=== PATIENT | female | born 1995 | race African-American/Black ===

== ENCOUNTER 2018-09-06 10:35 | Emergency (ER) | payer SELFPAY ==
--- OUTSIDE RECORDS SUMMARY | 2018-09-06 10:37 | XMS REPORT ---
:1995 [facility] Address [address]e [address] [place] [address] Care Team Providers Name Role Phone Unavailable Unavailable Unavailable Problems This patient has no known problems. Allergies, Adverse Reactions, Alerts This patient has no known allergies or adverse reactions. Medications This patient has no known medications.
--- NOTE | 2018-09-06 11:53 | ER ---
Nurse's Notes [facility] Name: Shahrzad Esqueda Age: 23 yrs Sex: Female : 1995 Arrival Date: 09/06/2018 Time: 10:36 Bed 19 Private MD: Diagnosis: Acute sinusitis Presentation: 09/06 10:59 Presenting complaint: Patient states: sore throat, feels like I can't breath, fever, iw alexandra ear pain, runny nose X 3 days. Transition of care: patient was not received from another setting of care. Onset of symptoms was September 03, 2018. Risk Assessment: Do you want to hurt yourself or someone else? Patient reports no desire to harm self or others. Initial Sepsis Screen: Does the patient meet any 2 criteria? No. Patient's initial sepsis screen is negative. Does the patient have a suspected source of infection? No. Patient's initial sepsis screen is negative. Care prior to arrival: None. 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 - Social history:: Smoking status: Patient/guardian denies using tobacco. - Ebola Screening: : Patient negative for fever greater than or equal to 101.5 degrees Fahrenheit, and additional compatible Ebola Virus Disease symptoms Patient denies exposure to infectious person Patient denies travel to an Ebola-affected area in the 21 days before illness onset No symptoms or risks identified at this time. Screenin:15 Abuse screen: Denies threats or abuse. Nutritional screening: No deficits noted. em Tuberculosis screening: No symptoms or risk factors identified. Fall Risk None identified. Assessment: 11:15 General: Appears in no apparent distress. comfortable, Behavior is calm, cooperative, em Reports fever for 12-24 hours. Pain: Complains of pain in throat Pain currently is 8 out of 10 on a pain scale. Pain began 2-3 days ago. Neuro: Level of Consciousness is awake, alert, obeys commands, Oriented to person, place, time, situation. Cardiovascular: Heart tones S1 S2 present Capillary refill < 3 seconds. Respiratory: Reports cough that is Airway is patent Respiratory effort is even, unlabored, Breath sounds are clear bilaterally. GI: Patient currently denies nausea, vomiting. EENT: Oral mucosa is moist. Throat is clear is pink Reports nasal congestion since for 3 days. Derm: Skin is intact, is healthy with good turgor, Skin is pink, warm \T\ dry. Musculoskeletal: Capillary refill < 3 seconds, Range of motion: intact in all extremities. 12:22 Reassessment: Patient appears in no apparent distress at this time. Patient and/or em family updated on plan of care and expected duration. Pain level reassessed. Patient is alert, oriented x 3, equal unlabored respirations, skin warm/dry/pink. Vital Signs: 11:02 BP 123 / 89; Pulse 92; Resp 16 S; Temp 98.4(TE); Pulse Ox 100% on R/A; Weight 88.45 kg; iw Height 5 ft. 6 in. (167.64 cm); Pain 8/10; 11:02 Body Mass Index 31.47 (88.45 kg, 167.64 cm) iw ED Course: 10:36 Patient arrived in ED. as 10:40 Mariama Siddiqi FNP-C is [facility]. kb 10:40 Ryne Merrill MD is Attending Physician. kb 11:01 Triage completed. iw 11:01 Julius Douglas LVN is Primary Nurse. em 11:03 Arm band placed on. iw 11:15 Patient has correct armband on for positive identification. Bed in low position. Call em light in reach. Pulse ox on. NIBP on. 12:22 No provider procedures requiring assistance completed. Patient did not have IV access em during this emergency room visit. Administered Medications: 12:04 Drug: SOLU-Medrol 125 mg Route: IM; Site: right gluteus; em 12:22 Follow up: Response: No adverse reaction em Outcome: 11:52 Discharge ordered by . kb 12:22 Discharged to home ambulatory. em 12:22 Condition: good 12:22 Discharge instructions given to patient, Instructed on discharge instructions, follow up and referral plans. Demonstrated understanding of instructions, follow-up care. 12:22 Patient left the ED. em Signatures: Mariama Siddiqi FNP-C FNP-Ckb Julius Douglas, ENVELOPE STAMPING MACHINE OPERATOR ENVELOPE STAMPING MACHINE OPERATOR Nina Dior as Laxmi Knapp, RN RN iw
--- NOTE | 2018-09-06 11:53 | EDPHYS ---
Physician Documentation [facility] Name: Shahrzad Esqueda Age: 23 yrs Sex: Female : 1995 Arrival Date: 09/06/2018 Time: 10:36 Bed 19 Private MD: ED Physician Ryne Merrill HPI: 09/06 11:48 This 23 yrs old Black Female presents to ER via Ambulatory with complaints of Sore kb Throat, Fever, Ear Pain. 11:48 The patient presents with sore throat. The patient describes throat pain as constant. kb Onset: The symptoms/episode began/occurred 3 day(s) ago. Severity of symptoms: At their worst the symptoms were moderate, in the emergency department the symptoms are unchanged. Modifying factors: The symptoms are alleviated by nothing, the symptoms are aggravated by swallowing, Patient's oral intake status: good Denies contact with similarly ill indivduals. Associated signs and symptoms: Pertinent positives: earache, flu-like symptoms, malaise, rhinorrhea, Sore throat. The patient has not experienced similar symptoms in the past. The patient has not recently seen a physician. 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 - Social history:: Smoking status: Patient/guardian denies using tobacco. - Ebola Screening: : Patient negative for fever greater than or equal to 101.5 degrees Fahrenheit, and additional compatible Ebola Virus Disease symptoms Patient denies exposure to infectious person Patient denies travel to an Ebola-affected area in the 21 days before illness onset No symptoms or risks identified at this time. ROS: 11:48 Cardiovascular: Negative for chest pain, palpitations, and edema, Respiratory: Negative kb for shortness of breath, cough, wheezing, and pleuritic chest pain, Abdomen/GI: Negative for abdominal pain, nausea, vomiting, diarrhea, and constipation, MS/Extremity: Negative for injury and deformity, Skin: Negative for injury, rash, and discoloration, Neuro: Negative for headache, weakness, numbness, tingling, and seizure. 11:48 Constitutional: Positive for malaise, Negative for body aches, chills, fatigue, fever, poor PO intake, weight loss. 11:48 ENT: Positive for ear pain, rhinorrhea, sinus congestion, sinus pain. Exam: 11:50 Constitutional: This is a well developed, well nourished patient who is awake, alert, kb and in no acute distress. Head/Face: Normocephalic, atraumatic. ENT: Nares patent. No nasal discharge, no septal abnormalities noted. Tympanic membranes are normal and external auditory canals are clear. Oropharynx with no redness, swelling, or masses, exudates, or evidence of obstruction, uvula midline. Mucous membranes moist. Neck: Trachea midline, no thyromegaly or masses palpated, and no cervical lymphadenopathy. Supple, full range of motion without nuchal rigidity, or vertebral point tenderness. No Meningismus. Chest/axilla: Normal chest wall appearance and motion. Nontender with no deformity. No lesions are appreciated. Cardiovascular: Regular rate and rhythm with a normal S1 and S2. No gallops, murmurs, or rubs. Normal PMI, no JVD. No pulse deficits. Respiratory: Lungs have equal breath sounds bilaterally, clear to auscultation and percussion. No rales, rhonchi or wheezes noted. No increased work of breathing, no retractions or nasal flaring. Abdomen/GI: Soft, non-tender, with normal bowel sounds. No distension or tympany. No guarding or rebound. No evidence of tenderness throughout. Skin: Warm, dry with normal turgor. Normal color with no rashes, no lesions, and no evidence of cellulitis. MS/ Extremity: Pulses equal, no cyanosis. Neurovascular intact. Full, normal range of motion. Neuro: Awake and alert, GCS 15, oriented to person, place, time, and situation. Cranial nerves II-XII grossly intact. Motor strength 5/5 in all extremities. Sensory grossly intact. Cerebellar exam normal. Normal gait. Vital Signs: 11:02 BP 123 / 89; Pulse 92; Resp 16 S; Temp 98.4(TE); Pulse Ox 100% on R/A; Weight 88.45 kg; iw Height 5 ft. 6 in. (167.64 cm); Pain 8/10; 11:02 Body Mass Index 31.47 (88.45 kg, 167.64 cm) iw MDM: 10:58 Patient medically screened. kb 11:50 Data reviewed: vital signs, nurses notes. Data interpreted: Pulse oximetry: on room air kb is 100 %. Interpretation: normal. Counseling: I had a detailed discussion with the patient and/or guardian regarding: the historical points, exam findings, and any diagnostic results supporting the discharge/admit diagnosis, lab results, the need for outpatient follow up, a family practitioner, to return to the emergency department if symptoms worsen or persist or if there are any questions or concerns that arise at home. 09/06 11:01 Order name: Flu; Complete Time: 11:48 kb 09/06 11:01 Order name: Strep; Complete Time: 11:38 kb 09/06 11:40 Order name: Throat Culture EDMS Administered Medications: 12:04 Drug: SOLU-Medrol 125 mg Route: IM; Site: right gluteus; em 12:22 Follow up: Response: No adverse reaction em Disposition: 09/06/18 11:52 Discharged to Home. Impression: Acute sinusitis. - Condition is Stable. - Discharge Instructions: Sinusitis, Adult, [id number]. - Medication Reconciliation Form, Thank You Letter, Antibiotic Education, Prescription Opioid Use form. - Follow up: Emergency Department; When: As needed; Reason: Worsening of condition. Follow up: Private Physician; When: 2 - 3 days; Reason: Recheck today's complaints, Continuance of care, Re-evaluation by your physician. - Notes: Use Flonase as directed Take an antihistamine with decongestant (zyrtec d, claritin d, or cyrus d) daily Signatures: Dispatcher [employer] EDWI Mariama Siddiqi, RUFUS-C TRAIL CONSTRUCTION WORKER-Julius Camp, SEARCH MARKETING COORDINATOR SEARCH MARKETING COORDINATOR em Laxmi Knapp, LLOYD RN iw Corrections: (The following items were deleted from the chart) 12:22 11:52 09/06/2018 11:52 Discharged to Home. Impression: Acute sinusitis. Condition is em Stable. Discharge Instructions: Sinusitis, Adult, [id number]. Forms are Medication Reconciliation Form, Thank You Letter, Antibiotic Education, Prescription Opioid Use. Follow up: Emergency Department; When: As needed; Reason: Worsening of condition. Follow up: Private Physician; When: 2 - 3 days; Reason: Recheck today's complaints, Continuance of care, Re-evaluation by your physician. kb
[2018-09-06] MEDS ORDERED: METHYLPREDNISOLONE 125 MG INJ ONE (12:11)
== END 2018-09-06 12:22 | disposition home or self-care (01) ==
LOC: ER 10:35
DX: J01.90 Acute sinusitis, unspecified (principal)
CPT/HCPCS: 87070; 87081; 87804; J2930

== ENCOUNTER 2019-05-07 02:44 | Emergency (ER) | payer SELFPAY ==
--- OUTSIDE RECORDS SUMMARY | 2019-05-07 02:46 | XMS REPORT | Summary of Care ---
:1995 Author Organization [facility] Address [address] [place] [address] Care Team Providers Name Role Phone [facility] Provider Encounter Details Date Type Department Care Team Description 12/14/2018 Orders Only [facility] Doctor Unassigned, No [address] [facility] [place] [address] [address] [place] [address] Allergies No Known Allergiesdocumented as of this encounter (statuses as of 12/14/2018) Medications Medication Sig Dispensed Refills Start Date End Date Status traMADOL 50 mg tablet Take 1 tablet by 20 tablet 0 04/16/2018 Active mouth every 6 (six) hours as needed for Pain (scale 1-3) or Pain (scale 4-6). ibuprofen 600 mg Take 1 tablet by 30 tablet 0 04/16/2018 Active tablet mouth every 6 (six) hours as needed for Pain (scale 1-3) or Pain (scale 4-6). acyclovir 400 mg Take 1 tablet by 60 tablet 3 07/14/2018 Active tabletIndications: mouth 2 (two) Herpes, vulvar times daily. levonorgestrel-ethinyl Take 1 tablet by 1 Package 2 08/13/2018 Active estradiol (SRONYX) mouth daily. 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 documented as of this encounter (statuses as of 12/14/2018) Resolved Problems Problem Noted Date Resolved Date Cellulitis of vulva of multiple sites 12/04/2015 12/20/2016 Maternal varicella, non-immune 10/24/2015 12/20/2016 High-risk , first trimester [O09.91] 10/23/2015 12/20/2016 History of chlamydia 10/23/2015 12/20/2016 Nausea and vomiting during prior to 22 weeks 10/23/2015 12/20/2016 gestation Headache in , antepartum, first trimester 10/23/2015 12/20/2016 Herpes, vulvar 10/23/2015 12/20/2016 Anemia 02/19/2013 10/23/2015 Overview: Mild- hgb- 11.3 ICD10 Diagnosis 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 Encounter for routine gynecological examination 02/18/2013 10/23/2015 Overview: ICD10 Diagnosis 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 General counseling and advice for contraceptive management 02/18/20132015 Overview: ICD10 Diagnosis 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 Trichomonal vulvovaginitis 02/18/2013 10/23/2015 documented as of this encounter (statuses as of 12/14/2018) Immunizations Name Administration Dates Next Due HPV9 10/28/2017, 03/21/2017, 12/20/2016 Td 12/20/2011 documented as of this encounter Social History Tobacco Use Types Packs/Day Years Used Date Never Smoker Smokeless Tobacco: Never Used Alcohol Use Drinks/Week oz/Week Comments No 0 Standard drinks or equivalent 0.0 Sex Assigned at Date Recorded Not on file Job Start Date Occupation Industry Not on file Not on file Not on file Travel History Travel Start Travel End No recent travel history available. documented as of this encounter Last Filed Vital Signs Not on filedocumented in this encounter Plan of Treatment Health Maintenance Due Date Last Done Comments MENINGOCOCCAL B VACCINES (1 08/04/2007 of 2 - Risk Bexsero 2-dose series) VARICELLA VACCINES (1 of 2 - 2010 13+ 2-dose series) DTaP,Tdap,and Td Vaccines (2 2016 12/20/2011 - Tdap) PAP SMEAR 2018 INFLUENZA VACCINE 01/10/2019 CHLAMYDIA SCREENING 08/14/2019 08/13/2018, 12/30/2017, 05/20/2017, Additional history exists HPV VACCINES Completed 10/28/2017, 03/21/2017, 12/20/2016 MENINGOCOCCAL VACCINE Aged Out No longer eligible based on patient's age to complete this topic PNEUMOCOCCAL 0-64 YEARS Aged Out No longer eligible COMBINED SERIES based on patient's age to complete this topic documented as of this encounter Procedures Procedure Name Priority Date/Time Associated Diagnosis Comments [facility] PATIENT FINANCIAL Routine 12/14/2018 4:34 PM POLICY CDT NO SHOW OR MISSED Routine 12/14/2018 4:33 PM APPOINTMENT POLICY CDT ACKNOWLEDGEMENT documented in this encounter Results Not on filedocumented in this encounter Insurance Payer Benefit Plan Subscriber ID Effective Phone Address Type / Group Dates [facility] x[id number] [phone] Medicaid [place]OM[place] [id number] [place] [address] documented as of this encounter Advance Directives Name Relationship Healthcare Agent Relationship Communication Marilu Tsang Mother Primary healthcare agent
--- OUTSIDE RECORDS SUMMARY | 2019-05-07 02:46 | XMS REPORT ---
:1995 [facility] Address [address] [place] [address] Care Team Providers Name Role Phone Unavailable Unavailable Unavailable Problems This patient has no known problems. Allergies, Adverse Reactions, Alerts This patient has no known allergies or adverse reactions. Medications This patient has no known medications.
--- OUTSIDE RECORDS SUMMARY | 2019-05-07 02:47 | XMS REPORT | Summary of Care ---
:1995 Author Organization [facility] Address [address] [place] [id number] Care Team Providers Name Role Phone Jeny Torres [facility] Primary Care Provider Reason for Visit Reason Comments Well Woman Exam Encounter Details Date Type Department Care Team Description 12/14/2018 Office Visit [facility]- Jeny Torres Well woman exam (Primary Dx); Behzad Aceves [facility] control counseling; [address] Screen for STD (sexually transmitted disease); [place], [place] [employer] Obesity (BMI 30-39.9) [id number] [place], [place] [id number] Allergies No Known Allergiesdocumented as of this [...] 0.1-20 mg-mcg per tabletIndications: Family planning counseling levonorgestrel-ethinyl Take 1 tablet by 1 Package 2 12/14/2018 Active estradiol (SRONYX) mouth daily. 0.1-20 mg-mcg per tabletIndications: control counseling documented as of this encounter (statuses as of 12/14/2018) Active Problems Problem Noted Date Obesity (BMI 30-39.9) 12/14/2018 Vaginal laceration 06/16/2017 Well woman exam 12/20/2016 Encounter for other general counseling or advice on contraception 12/20/2016 Over weight 12/20/2016 Herpes genitalis in women 12/04/2015 Asthma 02/18/2013 Overview: ICD10 Diagnosis Term Cephalometric Analyst Utility documented as of this encounter (statuses [...] Overview: Mild- hgb- 11.3 ICD10 Diagnosis Term Cephalometric Analyst Utility Encounter for routine gynecological examination 02/18/2013 10/23/2015 Overview: ICD10 Diagnosis Term Cephalometric Analyst Utility General counseling and advice for contraceptive management 02/18/20132015 Overview: ICD10 Diagnosis Term Cephalometric Analyst Utility Trichomonal vulvovaginitis 02/18/2013 10/23/2015 documented as of this encounter (statuses as of 12/14/2018) Immunizations Name Administration Dates Next Due HPV9 10/28/2017, 03/21/2017, 12/20/2016 Td 12/20/2011 documented as of this encounter Social History Tobacco Use Types Packs/Day Years Used Date Never Smoker Smokeless Tobacco: Never Used Alcohol Use Drinks/Week oz/Week Comments Yes 0 Standard drinks or equivalent 0.0 Sociallu Alcohol Habits Answer Date Recorded How often do you have a drink containing alcohol? Not asked How many drinks containing alcohol do you have on a typical 1 or 2 12/14/2018 day when you are drinking? How often do you have six or more drinks on one occasion? Not asked Sex Assigned at Date Recorded Not on file Job Start Date Occupation Industry Not on file Not on file Not on file Travel History Travel Start Travel End No recent travel history available. documented as of this encounter Last Filed Vital Signs Vital Sign Reading Time Taken Comments Blood Pressure 135/88 12/14/2018 4:58 PM CDT Pulse 94 12/14/2018 4:58 PM CDT Temperature 37.1 C (98.8 F) 12/14/2018 4:58 PM CDT Respiratory Rate 16 12/14/2018 4:58 PM CDT Oxygen Saturation - - Inhaled Oxygen Concentration - - Weight 90.9 kg (200 lb 8 oz) 12/14/2018 4:58 PM CDT Height 167.6 cm (5' 6") 12/14/2018 4:58 PM CDT Body Mass Index 32.36 12/14/2018 4:58 PM CDT documented in this encounter Patient Instructions Patient InstructionsIncDickson berger RN - 12/14/2018 4:30 PM CDT Understanding STDs When it comes to sex, nothing is risk-free. Any sexual contact with the penis, vagina, anus, or mouth can spread a sexually transmitted disease (STD). The only sure way to prevent STDs is abstinence (not having sex). But there are ways to make sex safer. Use a latex condom each time you have sex. And choose your partner wisely. Use condoms for safer sex If you have sex, latex condoms provide the best protection against STDs. Latex condoms stop the exchange of body fluids that carry certain STDs. They also limit contact with affected skin. Be aware though, a condom doesnt cover all skin. So, affected skin that is not covered can still transfer disease. But you re safer with a condom than without one. Use a condom even if you use other control. While control methods like the pill or IUD help prevent , they do not protect against STDs. Choose the right condom Condoms made of latex prevent disease best. If youre allergic to latex, use polyurethane condoms instead. Male condoms fit over the penis. Female condoms line the vagina. Before buying a condom, read the label to be sure it prevents disease. Some novelty condoms dont. The right lubricant helps Buy lubricated condoms or use lubricant. This provides greater comfort and reduces the risk of condom breakage. Use only water-based lubricants. Dont use oil, lotion, or petroleum jelly. They can weaken the condom, causing breakage. Also, you may want to choose lubricants without nonoxynol-9. Its now known that this spermicide does not prevent disease and may cause irritation. Use condoms correctly For condoms to work, they must be used the right way. Keep these tips in mind: Use a new latex condom each time you have sex. Slip the condom on the penis before any contact ismade. When ready to withdraw, hold the rim of the condom as the penis pulls out. This prevents the condom from slipping off. Check the expiration date before using a condom. Dont store condoms in places that can get hot, such as a car or a wallet that is carried in a back pocket. Get to know your partner Safer sex is a process. It involves getting to know your partner and making informed choices. Ask each other how many partners you have had in the past, and how many you have now. Find out if either ofyou has an STD. If you decide to have sex, use a condom each time. Dont stop using condoms unlessyoure sure neither of you has other partners and youve both been tested to confirm you donthave STDs. Then stay free of disease by having sex only with each other (monogamy). Keep your cool Dont let alcohol or drugs cloud your judgment. They could lead you to have sex with someone you wouldnt have chosen if you were sober. Or, you might forget to use a condom. If you do plan to havesex, keep a latex condom with you. Dont wait until youre in the heat of passion to try to findone. Consider abstinence The only way to be sure you wont get an STD is to abstain from sex. Abstinence is a choice that many people make at some point in their lives. Maybe you want to wait until you are sure youre ready before you have sex. Maybe youd like a break from the responsibilities of sex for a while. Or maybe you just want to know your partner better before taking the next step. Abstinence is a choice youcan make now to protect your future. Date Last Reviewed: 04/11/201619990535-7924 [employer]. [address] [place] [address]. All rights reserved. This information is not intended as a substitute for professional medical care. Always follow your healthcare professional's instructions. Prevention Guidelines,Women Ages 18 to 39 Screening tests and vaccines are an important part of managing your health. A screening test is doneto find possible disorders or diseases in people who don' t have any symptoms. The goal is to find a disease early so lifestyle changes can be made and you can be watched more closely to reduce the riskof disease, or to detect it early enough to treat it most effectively. Screening tests are not considered diagnostic, but are used to determine if more testing is needed. Health counseling is essential, too. Below are guidelines for these, for women ages 18 to 39. Talk with your healthcare provider tomake sure youre up-to- date on what you need. Screening Who needs it How often Alcohol misuse All women in this age group At routine exams Blood pressure All women in this age group Yearly checkup if your blood pressure is normal Normal blood pressure is less than 120/80 mm Hg If your blood pressure reading is higher than normal, follow the advice of your healthcare provider Breast cancer All women in this age group should talk with their healthcare providers about the needfor clinical breast exams (CBE)1 Clinical breast exam every 3 years1 Cervical cancer Women ages 21 and older Women between ages 21 and 29 should have a Pap test every 3 years; women between ages 30 and 65 are advised to have a Pap test plus an HPV test every 5 years Chlamydia Sexually active women ages 25 and younger, and women at increased risk for infection (suchas having multiple sex partners) Every year if you're at risk or have symptoms Depression All women in this age group At routine exams Type 2 diabetes, prediabetes All women with no symptoms who are overweight or obese and have 1 or more other risk factors for diabetes At least every 3 years. Also, testing for diabetes during after the 24th week. Type 2 diabetes, prediabetes All women diagnosed with gestational diabetes Lifelong testing every 3 years Type 2 diabetes All women with prediabetes Every year Gonorrhea Sexually active women at increased risk for infection At routine exams Hepatitis C Anyone at increased risk At routine exams HIV All women should be tested at least once for HIV between the ages of 13 and 64 At routine exams.Those with risk factors for HIV should be tested at least annually. Obesity All women in this age group At routine exams Syphilis Women at increased risk for infection should talk with their healthcare provider At routineexams Tuberculosis Women at increased risk for infection should talk with their healthcare provider Ask your healthcare provider Vision All women in this age group At least 1 complete exam in your 20s, and 2 in your 30s Vaccine2 Who needs it How often Chickenpox (varicella) All women in this age group who have no record of this infection or vaccine 2doses; the second dose should be given 4 to 8 weeks after the first dose Hepatitis A Women at increased risk for infection should talk with their healthcare provider 2 dosesgiven at least 6 months apart Hepatitis B Women at increased risk for infection should talk with their healthcare provider 3 dosesover 6 months; second dose should be given 1 month after the first dose; the third dose should be given at least 2 months after the second dose and at least 4 months after the first dose Haemophilus influenzaeType B (HIB) Women at increased risk for infection should talk with their healthcare provider 1 to 3 doses Human papillomavirus (HPV) All women in this age group up to age 26 3 doses; the second dose should be given 1 to 2 months after the first dose and the third dose given 6 months after the first dose Influenza (flu) All women in this age group Once a year Measles, mumps, rubella (MMR) All women in this age group who have no record of these infections or vaccines 1 or 2 doses Meningococcal Women at increased risk for infection should talk with their healthcare provider 1 or more doses Pneumococcal conjugate vaccine (PCV13)and pneumococcal polysaccharide vaccine(PPSV23) Women at increased risk for infection should talk with their healthcare provider PCV13: 1 dose ages 19 to 65 (protects against 13 types of pneumococcal bacteria) PPSV23: 1 to2 doses through age 64, or 1 dose at 65 or older (protects against 23 types of pneumococcal bacteria) Tetanus/diphtheria/pertussis (Td/Tdap) booster All women in this age group Td every 10 years, or a one-time dose of Tdap instead of a Td booster after age 18 , then Td every 10 years Counseling Who needs it How often BRCA gene mutation testing for breast and ovarian cancer susceptibility Women with increased risk for having gene mutation When your risk is known Breast cancer and chemoprevention Women at high risk for breast cancer When your risk is known Diet and exercise Women who are overweight or obese When diagnosed, and then at routine exams Domestic violence Women at the age in which they are able to have children At routine exams Sexually transmitted infection prevention Women who are sexually active At routine exams Skin cancer Prevention of skin cancer in fair-skinned adults At routine exams Use of tobacco and the health effects it can cause All women in this age group Every visit 1 According to the ACS, women ages 20 to 39 years should have a clinical breast exam (CBE) as part of their routine health exam every 3 years. Breast self- exams are an option for women starting in their 20s.But the USPSTF does not recommend CBE. Date Last Reviewed: 02/09/201719993437-5511 [employer]. [address] [place] [address]. All rights reserved. This information is not intended as a substitute for professional medical care. Always follow your healthcare professional's instructions. Understanding HIV and AIDS If you know how HIV (human immunodeficiency virus) can get into your body and what happens once its there, youll be better prepared to protect yourself or others against this virus. A person withHIV can look and feel perfectly healthy. But that person can give HIV to others as soon as he or sheis infected with the virus. Note: Having unsafe or unprotected sex or sharing needles put you at risk for HIV. Talk with your healthcare provider about ways to protect yourself or a loved one from getting HIV. How HIV enters the body HIV is carried in semen, vaginal fluid, blood, and breast milk. During sex, HIV can enter the body through the fragile tissue that lines the vagina, penis, anus,and mouth. During drug use, tattooing, or body piercing, the virus can enter the bloodstream through a shared needle. A mother who has HIV can infect her child during childbirth and through . How HIV infection progresses After HIV enters the body, it attacks the immune system in stages. A person with HIV can infect others once the virus enters the bloodstream. HIV with no symptoms. A person with HIV may have no symptoms for years. A positive blood test for HIV antibodies 6 weeks to 6 months after HIV enters the body may be the only sign of infection. HIV with symptoms.Some people develop an illness similar to mononucleosis (or "mono") 2 to 4 weeksafter the virus enters the body. Symptoms may include swollen lymph glands, chills, fever, night sweats, weakness, weight loss, skin rashes, mouth ulcers, or sore throat. Symptoms may be mild at first and then slowly go away. In a very few individuals, symptoms may get progressively worse and last forlonger and longer periods. AIDS. AIDS is the last stage of HIV infection. Diseases and cancers begin to overcome the body. It is these diseases, not the virus itself, that cause . HIV may also attack the brain and nervous system, causing seizures and loss of memory and body movement. Date Last Reviewed: 03/12/201619992687-0451 [employer] [place] [address]. All rights reserved. This information is not intended as a substitute for professional medical care. Always follow your healthcare professional's instructions. Understanding STDs When it comes to sex, nothing is risk-free. Any sexual contact with the penis, vagina, anus, or mouth can spread a sexually transmitted disease (STD). The only sure way to prevent STDs is abstinence (not having sex). But there are ways to make sex safer. Use a latex condom each time you have sex. And choose your partner wisely. Use condoms for safer sex If you have sex, latex condoms provide the best protection against STDs. Latex condoms stop the exchange of body fluids that carry certain STDs. They also limit contact with affected skin. Be aware though, a condom doesnt cover all skin. So, affected skin that is not covered can still transfer disease. But you re safer with a condom than without one. Use a condom even if you use other control. While control methods like the pill or IUD help prevent , they do not protect against STDs. Choose the right condom Condoms made of latex prevent disease best. If youre allergic to latex, use polyurethane condoms instead. Male condoms fit over the penis. Female condoms line the vagina. Before buying a condom, read the label to be sure it prevents disease. Some novelty condoms dont. The right lubricant helps Buy lubricated condoms or use lubricant. This provides greater comfort and reduces the risk of condom breakage. Use only water-based lubricants. Dont use oil, lotion, or petroleum jelly. They can weaken the condom, causing breakage. Also, you may want to choose lubricants without nonoxynol-9. Its now known that this spermicide does not prevent disease and may cause irritation. Use condoms correctly For condoms to work, they must be used the right way. Keep these tips in mind: Use a new latex condom each time you have sex. Slip the condom on the penis before any contact ismade. When ready to withdraw, hold the rim of the condom as the penis pulls out. This prevents the condom from slipping off. Check the expiration date before using a condom. Dont store condoms in places that can get hot, such as a car or a wallet that is carried in a back pocket. Get to know your partner Safer sex is a process. It involves getting to know your partner and making informed choices. Ask each other how many partners you have had in the past, and how many you have now. Find out if either ofyou has an STD. If you decide to have sex, use a condom each time. Dont stop using condoms unlessyoure sure neither of you has other partners and youve both been tested to confirm you donthave STDs. Then stay free of disease by having sex only with each other (monogamy). Keep your cool Dont let alcohol or drugs cloud your judgment. They could lead you to have sex with someone you wouldnt have chosen if you were sober. Or, you might forget to use a condom. If you do plan to havesex, keep a latex condom with you. Dont wait until youre in the heat of passion to try to findone. Consider abstinence The only way to be sure you wont get an STD is to abstain from sex. Abstinence is a choice that many people make at some point in their lives. Maybe you want to wait until you are sure youre ready before you have sex. Maybe youd like a break from the responsibilities of sex for a while. Or maybe you just want to know your partner better before taking the next step. Abstinence is a choice youcan make now to protect your future. Date Last Reviewed: 04/11/201619990658-4944 [employer]. [address] [place] [address], [place] [address]. All rights reserved. This information is not intended as a substitute for professional medical care. Always follow your healthcare professional's instructions. Clinical Breast Exam Many health organizations recommend a yearly clinical breast exam. This exam may be done by a surgical rn, family healthcare provider, nurse practitioner, nurse digital computer systems analyst, or specially trained nurse. Yearly breast exams help tomake surethat breast conditions are found early. Your healthcare providers role A healthcare professional knows the tests and follow-up care needed if a problem is found. Your clinical exam is also a great time to ask questions about breast self-exams. You can find out if yourechecking your breasts in the best way. Or you may want to ask how , breast implants, or breast reduction surgery affect the way you should check your breasts. Diagnostic tests If a clinical exam reveals a breast change, you may have other tests to find out more. These tests may include: Mammography. A low-dose X-ray of your breast tissue. Ultrasound. An imaging test that uses sound waves to create images of your breast. Biopsy. A small amount of breast tissue is removed by needle or by a cut ( incision). The tissue is then checked under a microscope. Guidelines for having clinical breast exams The [place] [employer] recommends that starting at age 29, you should have a clinical breast exam every 1 to 3 years. After age 40, have a clinical breast exam each year. If youre at higher risk for breast cancer, you may need exams more often. Risk factors for breast cancer may include: Being over 50 or postmenopausal Having a family history of breast cancer Having the BRCA1 or BRCA2 gene mutation or certain other gene mutations Having more menstrual periods due to starting menstruation early(before age 12) or having a late menopause (after age 55) Having no pregnancies Having a first after age 30 Being obese Having a history of radiation treatment to your chest area Exposure to MODE during your mother's Not being active Drinking too much alcohol Having dense breast tissue Taking hormone therapy after menopause Other health organizations have different recommendations. Talk with your healthcare provider about what is best for you. Date Last Reviewed: 12/10/201619991003-0036 [employer]. [address] [place] [address], [place] [address]. All rights reserved. This information is not intended as a substitute for professional medical care. Always follow your healthcare professional's instructions. Breast Health: Breast Self-Awareness What is breast self-awareness? Breast self-awareness is knowing how your breasts normally look and feel. Your breasts change as yougo through different stages of your life. So its important to learn what is normal for your breasts. Breast self-awareness helps you notice any changes in your breasts right away. Report any changesto your healthcare provider. Why is breast self-awareness important? Many experts now say that women should focus on breast self-awareness instead of doing a breast self-examination (BSE). These experts include the [place] [employer], the U.S. Preventive Services Task Force, and the [place] [employer]. Some experts even advise notteaching women to do a BSE. Thats because research hasnt shown a clear benefit to doing BSEs. Breast self-awareness is different than a BSE. Breast self-awareness isnt about following a certain method and schedule. Its about knowing what's normal for your breasts. That way you can notice even small changes right away. If you see any changes, report them to your healthcare provider. Changes to look for Call your healthcare provider if you find any changes in your breasts that concern you. These changes may include: A lump Nipple discharge other than breastmilk, especially a bloody discharge Swelling A change in size or shape Skin irritation, such as redness, thickening, or dimpling of the skin Swollen lymph nodes in the armpit Nipple problems, such as pain or redness If you find a lump Contact your provider if you find lumpiness in one breast, feel something different in the tissue, or feel a definite lump. Sometimes lumpiness may be due to menstrual changes. But there may be reason for concern. Your provider may want to see you right away if you have: Nipple discharge that is bloody Skin changes on your breast, such as dimpling or puckering Its normal to be upset if you find a lump. But its important to contact your provider right away. Remember that most breast lumps are benign. This means they are not cancer. Date Last Reviewed: 12/10/201619991876-2982 [employer]. [address] [place] [address], [place] [address]. All rights reserved. This information is not intended as a substitute for professional medical care. Always follow your healthcare professional's instructions. Understanding USDA MyPlate The USDA (U.S. Department of Agriculture) has guidelines to help you make healthy food choices. These are called MyPlate. MyPlate shows the food groups that make up healthy meals using the image of a place setting. Before you eat, think about the healthiest choices for what to put onto your plate or into your cup or bowl. To learn more about building a healthy plate, visit www.choosemyplate.gov. The food groups Fruits. Any fruit or 100% fruit juice counts as part of the Fruit Group. Fruits may be fresh, canned, frozen, or dried, and may be whole, cut-up, or pureed. Make half your plate fruits and vegetables. Vegetables. Any vegetable or 100% vegetable juice counts as a member of the Vegetable Group. Vegetables may be fresh, frozen, canned, or dried. They can be served raw or cooked and may be whole, cut-up, or mashed. Make half your plate fruits and vegetables. Grains. All foods made from grains are part of the Grains Group. These include wheat, rice, oats,cornmeal, and barley such as bread, pasta, oatmeal, cereal, tortillas, and grits. Grains should be no more than a quarter of your plate. At least half of your grains should be whole grains. Protein. This group includes meat, poultry, seafood, beans and peas, eggs, processed soy products(like tofu), nuts (including nut butters), and seeds. Make protein choices no more than a quarter ofyour plate. Meat and poultry choices should be lean or low fat. Dairy. All fluid milk products and foods made from milk that contain calcium , like yogurt and cheese, are part of the Dairy Group. (Foods that have little calcium, such as cream, butter, and cream cheese, are not part of the group.) Most dairy choices should be low-fat or fat-free. Oils. These are fats that are liquid at room temperature. They include canola , corn, olive, soybean, and sunflower oil. Foods that are mainly oil include mayonnaise, certain salad dressings, and soft margarines. You should have only 5 to 7 teaspoons of oils a day. You probably already get this muchfrom the food you eat. Date Last Reviewed: 12/10/201619999318-9491 [employer]. [address] [place] [address]. All rights reserved. This information is not intended as a substitute for professional medical care. Always follow your healthcare professional's instructions. Eating Heart-Healthy Foods Eating has a big impact on your heart health. In fact, eating healthier can improve several of your heart risks at once. For instance, it helps you manage weight, cholesterol, and blood pressure. Here are ideas to help you make heart- healthy changes without giving up allthe foods and flavors you love. Getting started Talk with your healthcare provider about eating plans, such as the DASH or Mediterranean diet. You may also be referred to a dietitian. Change a few things at a time. Give yourself time to get used to a few eating changes before adding more. Work to create a tasty, healthy eating plan that you can stick to for the rest of your life. Goals for healthy eating Below are some tips to improve your eating habits: Limit saturated fats and trans fats. Saturated fats raise your levels of cholesterol, so keep these fats to a minimum. They are found in foods such as fatty meats, whole milk, cheese, and palm and coconut oils. Avoid trans fats because they lower good cholesterol as well as raise bad cholesterol. Trans fats are most often found in processed foods. Reduce sodium (salt) intake. Eating too much salt may increase your blood pressure. Limit your sodium intake to 2,300 milligrams (mg) per day(the amount in 1 teaspoon of salt), or less if your healthcare provider recommends it. Dining out less often and eating fewer processed foods are two great ways to decrease the amount of salt you consume. Managing calories. A calorie is a unit of energy. Your body patel calories for fuel, but if you eat more calories than your body patel, the extras are stored as fat. Your healthcare provider can help you create a diet plan to manage your calories. This will likely include eating healthier foods as well as exercising regularly. To help you track your progress, keep a diary to record what you eat and how often you exercise. Choose the right foods Aim to make these foods noemi of your diet. If you have diabetes, you may have different recommendations than what is listed here: Fruits and vegetables provide plenty of nutrients without a lot of calories. At meals, fill half your plate with these foods. Split the other half of your plate between whole grains and lean protein. Whole grains are high in fiber and rich in vitamins and nutrients. Good choices include whole-wheat bread, pasta, and brown rice. Lean proteins give you nutrition with less fat. Good choices include fish, skinless chicken, and beans. Low-fat or nonfat dairy provides nutrients without a lot of fat. Try low-fat or nonfat milk, cheese, or yogurt. Healthy fats can be good for you in small amounts. These are unsaturated fats , such as olive oil,nuts, and fish. Try to have at least 2 servings per week of fatty fish, such as salmon, sardines, mackerel, rainbow trout, and albacore tuna. These contain omega-3 fatty acids, which are good for your heart. Flaxseed is another source of a heart-healthy fat. More on heart-healthy eating Read food labels Healthy eating starts at the grocery store. Be sure to pay attention to food labels on packaged foods. Look for products that are high in fiber and protein, and low in saturated fat, cholesterol, and sodium. Avoid products that contain trans fat. And pay close attention to serving size. For instance, if you plan to eat two servings, double all the numbers on the label. Prepare food right A parsons part of healthy cooking is cutting down on added fat and salt. Look on the internet for lower-fat, lower-sodium recipes. Also, try these tips: Remove fat from meat and skin from poultry before cooking. Skim fat from the surface of soups and sauces. Broil, boil, bake, steam, grill, and microwave food without added fats. Choose ingredients that spice up your food without adding calories, fat, or sodium. Try these items: horseradish, hot sauce, lemon, mustard, nonfat salad dressings, and vinegar. For salt-free herbs and spices, try basil, cilantro, cinnamon, pepper, and mark. Date Last Reviewed: 02/09/201719996450-8183 [employer]. [address] [place] [address]. All rights reserved. This information is not intended as a substitute for professional medical care. Always follow your healthcare professional's instructions. documented in this encounter Progress Notes RenardyanniJeny, CNP - 12/14/2018 4:30 PM CDT Chief complaint: Chief Complaint Patient presents with Well Woman Exam HPI: the patient is here for WWE and contraceptive management. She reports she is doing well with noissues or concerns today. She agrees to STI testing today. She reports she desires ocp for control today. Pt (denies) current or past physical, sexual or emotional abuse. Histories OB History Para Term AB Living 1 1 0 SAB TAB Ectopic Multiple Live Births # Outcome Date GA Lbr Hector/2nd Weight Sex Delivery Anes PTL Lv 1 AB 12/13/15 13w1d Obstetric Comments Pt states she had elected for TAB, when she went to clinic she was told she was actively having a miscarriage. This was November or December of 2015, pt not sure how many weeks. Past Medical History: Diagnosis Date Anemia, unspecified 02/19/2013 Not on meds Anxiety Does not recall Asthma 2008 last attack 2014, does not have rescue inhaler Genital herpes 2016 taking acyclovir when she has out breaks Herpes, vulvar 10/23/2015 Trichomonal vulvovaginitis 02/18/2013 Vision problems wears glasses Family History Problem Relation Age of Onset Asthma Maternal Grandmother Cancer Maternal Grandmother Asthma Brother No Significant Medical Problems Mother No Significant Medical Problems Father No Significant Medical Problems Sister No Significant Medical Problems Maternal Aunt No Significant Medical Problems Maternal Uncle No Significant Medical Problems Paternal Aunt No Significant Medical Problems Paternal Uncle No Significant Medical Problems Maternal Grandfather No Significant Medical Problems Paternal Grandmother No Significant Medical Problems Paternal Grandfather Arthritis NoFHx Depression NoFHx Uterine Cancer NoFHx Ovarian Cancer NoFHx Colon Cancer NoFHx Breast Cancer NoFHx defects NoFHx Diabetes NoFHx Genetic NoFHx Heart NoFHx High cholesterol NoFHx Hypertension NoFHx Mental retardation NoFHx Neurological NoFHx Osteoporosis NoFHx Psychiatry NoFHx Other - see comments NoFHx Family Status Relation Name Status MGMo Bro (Not Specified) Mo (Not Specified) Fa (Not Specified) Sis (Not Specified) MAunt (Not Specified) MUnc (Not Specified) PAunt (Not Specified) PUnc (Not Specified) MGFa (Not Specified) PGMo (Not Specified) PGFa (Not Specified) NoFHx (Not Specified) Past Surgical History: Procedure Laterality Date DILATION AND CURETTAGE (SHX) 12/2015 INCISION AND DRAINAGE OF ABSCESS Left 12/04/2015 Surgeon: Alex Johnston MD; [place] [facility] [place] Socioeconomic History Marital status: Single Spouse name: Not on file Number of children: 0 Years of education: 9 Highest education level: Not on file Occupational History Not on file Social Needs Financial resource strain: Not on file Food insecurity: Worry: Not on file Inability: Not on file Transportation needs: Medical: Not on file Non-medical: Not on file Tobacco Use Smoking status: Never Smoker Smokeless tobacco: Never Used Substance and Sexual Activity Alcohol use: Yes Alcohol/week: 0.0 oz Drinks per session: 1 or 2 Comment: Sociallu Drug use: No Sexual activity: Yes Partners: Male control/protection: Condom Comment: last sexual intercourse 11/27/2018 Lifestyle Physical activity: Days per week: Not on file Minutes per session: Not on file Stress: Not on file Relationships Social connections: Talks on phone: Not on file Gets together: Not on file Attends anglican service: Not on file Active member of club or organization: Not on file Attends meetings of clubs or organizations: Not on file Relationship status: Not on file Intimate partner violence: Fear of current or ex partner: Not on file Emotionally abused: Not on file Physically abused: Not on file Forced sexual activity: Not on file Other Topics Concern Service Not Asked Blood Transfusions No Caffeine Concern Not Asked Occupational Exposure Not Asked Hobby Hazards Not Asked Sleep Concern Not Asked Stress Concern Not Asked Weight Concern Not Asked Special Diet Not Asked Back Care Not Asked Exercise Not Asked Bike Helmet Not Asked Seat Belt Not Asked Self-Exams Not Asked Social History Narrative No domestic violence or abuse Pt states she feels safe at home. Patient lives with mother. Social History Substance and Sexual Activity Sexual Activity Yes Partners: Male control/protection: Condom Comment: last sexual intercourse 11/27/2018 Labs No new labs and Nurse Visit on 11/11/2018 Component Date Value POCT PREG 11/11/2018 Negative On board controls accept* 11/11/2018 Yes Radiology No new radiology. Allergies Shahrzad has No Known Allergies. Medications Shahrzad has a current medication list which includes the following prescription( s): acyclovir, levonorgestrel-ethinyl estradiol, ibuprofen, and tramadol. Review of Systems Constitutional: Negative. HENT: Negative. Eyes: Negative. Respiratory: Negative. Breasts: Negative. Cardiovascular: Negative. Gastrointestinal: Negative. Genitourinary: Negative. Musculoskeletal: Negative. Skin: Negative. Neurological: Negative. Psychiatric/Behavioral: Negative. Endocrine: Endocrine negative BP 135/88 (BP Location: Right arm, Patient Position: Sitting, BP CUFF SIZE: Adult Medium) | Pulse 94 | Temp 37.1 C (98.8 F) (Oral) | Resp 16 | Ht 5 ' 6" (1.676 m) | Wt 200 lb 8 oz (90.9 kg) | LMP 11/15/2018 (Approximate) | BMI 32.36 kg/m Pregravid BMI: Could not be calculated Physical Exam Vitals reviewed. Constitutional: She is oriented to person, place, and time. She appears well- developed. Her body habitus is normal. Neck: No tenderness and no mass. No thyroid nodules and no thyromegaly palpated. No neck adenopathy. Cardiovascular: Regular rate and rhythm. No gallop, no friction rub and no murmur auscultated. No peripheral edema present. Pulmonary/Chest: Breath sounds clear to auscultation. Normal inspiratory effort. Abdominal: Abdomen is soft. No mass palpated. No tenderness present. There is no hepatosplenomegaly,splenomegaly or hepatomegaly. There is no rigidity. No hernia palpated or inspected. Neuro/Psychiatric: She has a normal mood and affect. She is oriented to person, place, and time. Skin: No lesion, no rash and no ulceration present. Lymphadenopathy: No neck adenopathy present. No axillary adenopathy present. No inguinal adenopathy present. Genitourinary Comments: Sheela DIAZ present during exam Breast: Right breast exhibits no mass, no nipple discharge and no tenderness. Left breast exhibits no mass, no nipple discharge and no tenderness. Breasts are symmetrical. Normal left breast and normalright breast Rectal: Rectal exam with normal anal tone. No mass, no external hemorrhoid and no internal hemorrhoid palpated or inspected. External genitalia: Normal external genitalia appropriate for age. Normal hair distribution. No labial lesion. Urethral meatus: Normal urethral meatus size, location and no lesion. No prolapse present. Normal urethral meatus Urethra: Normal urethra. No urethral tenderness, no mass and no urethral scarring palpated. Bladder: Bladder has no fullness, no mass palpated and no tenderness. Normal bladder Vagina:Normal vagina. No lesion inspected. Normal estrogen effect. Normal support. No abnormal vaginal discharge found. Cervix: Normal cervix. No lesion. No tenderness and no discharge present. Uterus: Uterus is normal size, normal contour, normal position and non-tender. Normal uterus Adnexa: Right adnexa without tenderness, ovary enlargement or mass. Left adnexa without tenderness, ovary enlargement or mass. Normal left adnexa and normal right adnexa Anus/perineum: Normal perineum and normal anus. Assessment/Plan Return to clinic in 12 weeks. control counseling (primary encounter diagnosis) Comment: as ordered Plan: POCT TEST Well woman exam Comment: routine Plan: PAP Smear-Liquid Based, GC & CHLAMYDIA AMPLIFIED ASSAY Screen for STD (sexually transmitted disease) Comment: as ordered Plan: HIV 1/2 AG-AB WITH REFLEX Obesity (BMI 30-39.9) Comment: see bmi Plan: limit weight gain and sensible diet. This visit did not involve counseling and coordination that comprised more than 50% of the visit time. MIGUEL Sutton 12/14/2018 6:30 PM Dickson Green RN - 2018 4:30 PM CDT23 year old presents to the clinic for wwe. 1) Previous BCM: None 2) Desired BCM: OCP 3) LMP: 11/15/2018, without protection. 4) Last [place]: 11/27/2018 5) Last Pap: N/A Results: N/A 6) Tdap: 2011 7) Gardasil: Completed 2017 8) C/O: Patient denies any complaints 9) Patient denies history of physical, emotional, or sexual abuse. Patient states that she currently feels safe at home. DICKSON WALTERS RN 12/14/2018 5:06 PM documented in this encounter Plan of Treatment Date Type Specialty Care Team Description 03/11/2019 Nurse Visit OB Satellites Visit, [facility] Nurse Name Type Priority Associated Diagnoses Date/Time PAP Smear-Liquid Based LAB Routine Well woman exam 12/14/2018 5:36 PM CDT GC & CHLAMYDIA LAB Routine Well woman exam 12/14/2018 5:36 PM CDT AMPLIFIED ASSAY HIV 1/2 AG-AB WITH LAB Routine Screen for STD (sexually 12/14/2018 5:36 PM CDT REFLEX transmitted disease) Health Maintenance Due Date Last Done Comments [...] Procedure Name Priority Date/Time Associated Diagnosis Comments POCT TEST Routine 12/14/2018 5:08 PM control Results for this CDT counseling procedure are in the results section. documented in this encounter Results POCT TEST (12/14/2018 5:08 PM CDT) POCT PREG Negative On board controls acceptable Yes with C Line POCT PREG LOT # POCT PREG TEST DATE Specimen Urine - URINE, CLEAN CATCH documented in this encounter Visit Diagnoses Diagnosis Well woman exam - Primary Routine general medical examination at a health care facility control counseling General counseling for initiation of other contraceptive measures Screen for STD (sexually transmitted disease) Screening examination for venereal disease Obesity (BMI 30-39.9) Obesity, unspecified documented in this encounter Insurance Payer Benefit Plan Subscriber ID Effective Phone Address Type / Group Dates [facility] xxxxxxxxx 2016-Prese [phone] Medicaid WOMEN nt [address] [place] [address] documented as of this encounter Advance Directives Name Relationship Healthcare Agent Relationship Communication Marilu Tsang Mother Primary healthcare agent [phone] ([place])
--- OUTSIDE RECORDS SUMMARY | 2019-05-07 02:47 | XMS REPORT | Summary of Care ---
:1995 Author Organization [facility] - [facility] Address [address] [place] [address] Care Team Providers Name Role Phone [facility] Provider Encounter Details Date Type Department Care Team Description 01/18/2019 Orders Only [facility] Doctor Unassigned, No [address] [facility] [place] [address] [address] [place] [address] Allergies No Known Allergiesdocumented as of this encounter (statuses as of 01/18/2019) Medications Medication Sig Dispensed Refills Start Date [...] as of this encounter (statuses as of 01/18/2019) Active Problems Problem Noted Date Obesity (BMI 30-39.9) 12/14/2018 Vaginal laceration 06/16/2017 Well woman exam 12/20/2016 Encounter for other general counseling or advice on contraception 12/20/2016 Over weight 12/20/2016 Herpes genitalis in women 12/04/2015 Asthma 02/18/2013 Overview: ICD10 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 documented as of this encounter (statuses as of 01/18/2019) Resolved Problems Problem Noted Date Resolved Date [...] Overview: Mild- hgb- 11.3 ICD10 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 Encounter for routine gynecological examination 02/18/2013 10/23/2015 Overview: ICD10 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 General counseling and advice for contraceptive management 02/18/20132015 Overview: ICD10 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 Trichomonal vulvovaginitis 02/18/2013 10/23/2015 documented as of this encounter (statuses as of 01/18/2019) Immunizations Name Administration Dates Next Due HPV9 [...] filedocumented in this encounter Plan of Treatment Date Type Specialty Care Team Description 03/11/2019 Nurse Visit OB Satellites Visit, [facility] Nurse Health Maintenance Due Date Last Done Comments MENINGOCOCCAL B VACCINES (1 08/04/2007 of 2 - Risk Bexsero 2-dose series) VARICELLA VACCINES (1 of 2 - 2010 13+ 2-dose series) DTaP,Tdap,and Td Vaccines (2 2016 12/20/2011 - Tdap) INFLUENZA VACCINE (#1) 2019 CHLAMYDIA SCREENING 12/15/2019 12/14/2018, 08/13/2018, 12/30/2017, Additional history exists PAP SMEAR 12/14/2021 12/14/2018 HPV VACCINES Completed 10/28/2017, 03/21/2017, 12/20/2016 MENINGOCOCCAL VACCINE Aged Out No longer eligible based on patient's age to complete this topic PNEUMOCOCCAL 0-64 YEARS Aged Out No longer eligible COMBINED SERIES based on patient's age to complete this topic documented as of this encounter Procedures Procedure Name Priority Date/Time Associated Diagnosis Comments CONSENT/REFUSAL FOR Routine 01/18/2019 8:00 AM DIAGNOSIS AND TREATMENT CDT ASSIGNMENT OF BENEFITS Routine 01/18/2019 8:00 AM CDT documented in this encounter Results Not on filedocumented in this encounter Insurance Payer Benefit Plan Subscriber ID Effective Phone Address Type / Group Dates [facility] xxxxxxxxx 2016-Kate [phone] Medicaid WOMEN nt [address] [place] [address] documented as of this encounter Advance Directives Name Relationship Healthcare Agent Relationship Communication Marilu Tsang Mother Primary healthcare agent
--- OUTSIDE RECORDS SUMMARY | 2019-05-07 02:47 | XMS REPORT | Summary of Care ---
:1995 Author Organization [facility] Address [address] [place] [address] Care Team Providers Name Role Phone Jeny Torres [facility] Primary Care Provider Reason for Visit Reason Comments Well Woman Exam Encounter Details Date Type Department Care Team Description 12/14/2018 Office Visit [facility]- Jeny Torres Well woman exam (Primary Dx); Behzad Aceves [facility] control counseling; [address] Screen for STD (sexually transmitted disease); [place], [place] [employer] Obesity (BMI 30-39.9) [id number] [place], [place] [address] Allergies No Known Allergiesdocumented as of this [...] 12/04/2015 Asthma 02/18/2013 Overview: ICD10 Diagnosis Term 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 Date Last Reviewed: 04/11/201619997881-8942 [employer]. [address] [place] [address]. All rights reserved. This information is not [...] does not recommend CBE. Date Last Reviewed: 02/09/201719993531-9008 [employer]. [address] [place] [address]. All rights reserved. This information is not [...] memory and body movement. Date Last Reviewed: 03/12/201619996585-[address] [employer] [place] [address]. All rights reserved. This information is not [...] to protect your future. Date Last Reviewed: 04/11/201619996830-7181 [employer]. [address] [place] [address], [place] [address]. All rights reserved. This information is not intended as a substitute for professional medical care. Always follow your healthcare professional's instructions. Clinical Breast Exam Many health organizations recommend a yearly clinical breast exam. This exam may be done by a test and turn up technician, family healthcare provider, nurse practitioner, nurse box cutter, or specially trained nurse. Yearly breast exams [...] Guidelines for having clinical breast exams The [employer] recommends that [...] is best for you. Date Last Reviewed: 12/10/201619997243-88[address] [employer] [place] [address], [place] [address]. All rights reserved. This information is not [...] breast self-examination (BSE). These experts include the [employer], the U.S. Preventive Services Task Force, and the [place] Gynec[employer]. Some experts [...] they are not cancer. Date Last Reviewed: 12/10/201619993088-8350 [employer]. [address] [place] [address], [place] [address]. All rights reserved. This information is not [...] the food you eat. Date Last Reviewed: 12/10/201619997089-6399 [employer]. [address] [place] [address]. All rights reserved. This information is not [...] cinnamon, pepper, and mark. Date Last Reviewed: 02/09/201719991192-6418 [employer]. [address] [place] [address]. All rights reserved. This information is not [...] Left 12/04/2015 Surgeon: Alex Johnston MD; [place] [facility] [place] Social History Socioeconomic History Marital status: Single [...] file Gets together: Not on file Attends zoroastrianism service: Not on file Active member of [...] 3) LMP: 11/15/2018, without protection. 4) Last [place]: 11/27/2018 5) Last Pap: N/A Results: N/A [...] Description 03/11/2019 Nurse Visit OB Satellites Visit, [facility] Nurse Name Type Priority Associated Diagnoses Date/Time [...] Phone Address Type / Group Dates [facility] xxxxxxxxx 2016-Prese [phone] Medicaid WOMEN nt [address] [place] [address] documented as of this encounter Advance Directives Name Relationship Healthcare Agent Relationship Communication Marilu Tsang Mother Primary healthcare agent [phone] ([place])
--- OUTSIDE RECORDS SUMMARY | 2019-05-07 02:48 | XMS REPORT | Summary of Care ---
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 Encounter Details Date Type Department Care Team Description 01/18/2019 Office Visit [facility]- Jeny Torres Vaginal discharge (Primary Dx); Behzad [facility] Vaginal yeast infection [address] [facility] [address] [facility] [address] [address] [place] [address] [phone] Allergies No Known Allergiesdocumented as of this encounter (statuses as of 01/18/2019) Medications Medication Sig Dispensed Refills Start Date End Date Status traMADOL 50 mg Take 1 tablet by 20 tablet 0 04/16/2018 Active tablet mouth every [...] mouth 2 (two) Herpes, vulvar times daily. levonorgestrel-ethin Take 1 tablet by 1 Package 2 08/13/2018 Active yl estradiol mouth daily. (SRONYX) 0.1-20 mg-mcg per tabletIndications: Family planning counseling levonorgestrel-ethin Take 1 tablet by 1 Package 2 12/14/2018 Active yl estradiol mouth daily. (SRONYX) 0.1-20 mg-mcg per tabletIndications: control counseling terconazole 0.4 % Insert 1 45 g 0 01/18/2019 01/21/2019 Active vaginal Applicator into creamIndications: vagina at bedtime Vaginal yeast for 3 days. 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 Duty Nurse Utility Encounter for routine gynecological examination 02/18/2013 10/23/2015 Overview: ICD10 Diagnosis Term Special Duty Nurse Utility General counseling and advice for contraceptive management 02/18/20132015 Overview: ICD10 Diagnosis Term Special Duty Nurse Utility Trichomonal vulvovaginitis 02/18/2013 10/23/2015 documented as [...] Sign Reading Time Taken Comments Blood Pressure 132/92 01/18/2019 8:24 AM CDT Pulse - - Temperature 36.6 C (97.9 F) 01/18/2019 8:24 AM CDT Respiratory Rate 16 01/18/2019 8:24 AM CDT Oxygen Saturation - - Inhaled Oxygen Concentration - - Weight 89.5 kg (197 lb 4 oz) 01/18/2019 8:24 AM CDT Height 167.6 cm (5' 6") 01/18/2019 8:24 AM CDT Body Mass Index 31.84 01/18/2019 8:24 AM CDT documented in this encounter Progress Notes Jeny Torres, WHCNP - 01/18/2019 8:00 AM CDT Chief complaint: Chief Complaint 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 She declines all other associated symptoms today. She declines any new sexual partners. She reports she tried otc monistat on this past Friday but only with minimal relief. Histories OB History Para Term AB Living [...] Left 12/04/2015 Surgeon: Alex Johnston MD; [place] [facility] [place] Socioeconomic History Marital status: Single [...] file Gets together: Not on file Attends bahai service: Not on file Active member of [...] intercourse 11/27/2018 Labs No new labs and Office Visit on 12/14/2018 Component Date Value POCT PREG 12/14/2018 Negative On board controls accept* 12/14/2018 Yes C. trachomatis Nucleic A* 12/14/2018 Negative N. gonorrhoeae Nucleic A* 12/14/2018 Negative HIV 1/2 Ag-Ab with Reflex 12/14/2018 Negative HIV Semi-quantitative 12/14/2018 0.08 Case Report 12/14/2018 Value:Gynecologic Cytology Case: [id number] Authorizing Provider: Jeny Torres, Collected: 2018 [address] [facility] Ordering Location: [facility]- Received: 2018 [address] [place] First Screen: Silvano Babin Specimen: Liquid Based Pap Preparation, CERVIX Clinical Information 12/14/2018 Value:routine Specimen Adequacy 12/14/2018 Satisfactory for Evaluation(Endocervical/ Transformation Zone Component Absent) Interpretation 12/14/2018 Negative for intraepithelial lesion or malignancy LMP 12/14/2018 LMP (specify date in Comments) Educational Note 12/14/2018 Value:This result contains rich text formatting which cannot be displayed here. Nurse Visit on 11/11/2018 Component Date Value POCT PREG 11/11/2018 Negative On board controls accept* 11/11/2018 Yes Radiology No new radiology. Allergies Shahrzad has No Known Allergies. Medications Shahrzad has a current medication list which includes the following prescription( s): terconazole, levonorgestrel-ethinyl estradiol, levonorgestrel-ethinyl estradiol, acyclovir, ibuprofen, and tramadol. Review of Systems Constitutional: Negative. HENT: Negative. Eyes: Negative. Respiratory: Negative. Breasts: Negative. Cardiovascular: Negative. Gastrointestinal: Negative. Genitourinary: Negative. Musculoskeletal: Negative. Skin: Negative. Neurological: Negative. Psychiatric/Behavioral: Negative. Endocrine: Endocrine negative BP (!) 132/92 (BP Location: Right arm, Patient Position: Sitting, BP CUFF SIZE: Adult Medium) | Temp 36.6 C (97.9 F) (Oral) | Resp 16 | Ht 5' 6" (1.676 m ) | Wt 197 lb 4 oz (89.5 kg) | BMI 31.84 kg/m Pregravid BMI: Could not be calculated Physical Exam Vitals reviewed. Constitutional: She is oriented to person, place, and time. She appears well- developed and well-nourished. Her body habitus is normal. Cardiovascular: Regular rate and rhythm. Pulmonary/Chest: Normal inspiratory effort. Neuro/Psychiatric: She has a normal mood and affect. She is oriented to person, place, and time. External genitalia: Normal external genitalia appropriate for age. Normal hair distribution. No labial lesion. Urethral meatus: Normal urethral meatus size, location and no lesion. No prolapse present. Normal urethral meatus Urethra: Normal urethra. No urethral tenderness, no mass and no urethral scarring palpated. Bladder: Bladder has no fullness, no mass palpated and no tenderness. Normal bladder Vagina:No lesion inspected. Normal estrogen effect. Normal support. Vaginal discharge found. +budding , +vaginal discharge Cervix: Normal cervix. No lesion. No tenderness and no discharge present. Uterus: Uterus is normal size, normal contour, normal position and non-tender. Normal uterus Adnexa: Right adnexa without tenderness, ovary enlargement or mass. Left adnexa without tenderness, ovary enlargement or mass. Normal left adnexa and normal right adnexa Assessment/Plan Return to clinic in 11 weeks. Vaginal discharge (primary encounter diagnosis) Comment: as orderedd Plan: GC & CHLAMYDIA AMPLIFIED ASSAY Vaginal yeast infection Comment: +budding Plan: terconazole 0.4 % vaginal cream This visit did not involve counseling and coordination that comprised more than 50% of the visit time. MIGUEL Sutton 01/18/2019 8:43 AM documented in this encounter Plan of Treatment Date Type Specialty Care Team Description 03/11/2019 Nurse Visit OB Satellites Visit, [facility] Nurse Name Type Priority Associated Diagnoses Date/Time GC & CHLAMYDIA AMPLIFIED LAB Routine Vaginal discharge 01/18/2019 4:08 PM CDT ASSAY Health Maintenance Due Date Last Done Comments [...] this topic documented as of this encounter Results Not on filedocumented in this encounter Visit Diagnoses Diagnosis Vaginal discharge - Primary Leukorrhea, not specified as infective Vaginal yeast infection Candidiasis of vulva and vagina documented in this encounter Insurance Payer Benefit Plan Subscriber ID Effective Phone Address Type / Group [facility] xxxxxxxxx 2016-Prese [phone] [place] [id number] [place] [address] documented as of this encounter Advance Directives Name Relationship Healthcare Agent Relationship Communication Marilu Tsang Mother Primary healthcare agent
--- OUTSIDE RECORDS SUMMARY | 2019-05-07 02:48 | XMS REPORT | Summary of Care ---
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 Utility General counseling and advice for contraceptive management 02/18/20132015 Overview: ICD10 Diagnosis Term 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 Circuit 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 Utility Trichomonal vulvovaginitis 02/18/2013 10/23/2015 documented as [...] Chief complaint: Chief Complaint 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 HPI: the patient is here [...] Left 12/04/2015 Surgeon: Alex Johnston MD; [place] [facility] [place] Social History Socioeconomic History Marital status: Single [...] file Gets together: Not on file Attends lutheran service: Not on file Active member of [...] 0.08 Case Report 12/14/2018 Value:Gynecologic Cytology Case: [id number] Authorizing Provider: Jeny Torres, Collected: 2018 1736 [facility] Ordering Location: [facility]- Received: 2018 [address] [place] First Screen: Silvano Babin Specimen: Liquid Based [...] [facility] Nurse Name Type Priority Associated Diagnoses Order Schedule GC & CHLAMYDIA AMPLIFIED ASSAY LAB Routine Vaginal discharge Ordered: 01/18 Health Maintenance Due Date Last Done Comments [...] ID Effective Phone Address Type / Group [facility] xxxxxxxxx 2016-Prese [phone] Medicaid WOMEN nt [address] [place] [address] documented as of this encounter Advance Directives Name Relationship Healthcare Agent Relationship Communication Mariluluis eduardo Tsang Mother Primary healthcare agent
--- OUTSIDE RECORDS SUMMARY | 2019-05-07 02:48 | XMS REPORT | Summary of Care ---
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 Utility Encounter for routine gynecological examination 02/18/2013 10/23/2015 Overview: ICD10 Diagnosis Term 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 Utility General counseling and advice for contraceptive management 02/18/20132015 Overview: ICD10 Diagnosis Term 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 Utility Trichomonal vulvovaginitis 02/18/2013 10/23/2015 documented as [...] Chief complaint: Chief Complaint 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- Received: 2018 [address] [place] First Screen: Silvano Babin Specimen: Liquid Based [...] Description 03/11/2019 Nurse Visit OB Satellites Visit, [facility] Nurse Name Type Priority Associated Diagnoses Order [...] ID Effective Phone Address Type / Group [facility] xxxxxxxxx 2016-Prese [phone] Medicaid WOMEN nt [address] [place] [address] documented as of this encounter Advance Directives Name Relationship Healthcare Agent Relationship Communication Mariluluis eduardo Tsang Mother Primary healthcare agent
[2019-05-07] MEDS ORDERED: CEFTRIAXONE/SWI 1gm 1 GM/10 ML SYR ONE (03:47)
[2019-05-07] MEDS ORDERED: NA CHLORIDE 0.9% 1,000 ML ONE (03:47)
[2019-05-07 04:00] LABS: Absolute Lymphocytes (CBC) 2.1 K/uL (0.7-4.9); Basophils % 0.2 % (0-1.3); Hematocrit 36.6 % (36.0-45.0); Lymphocytes % 24.3 % (15.3-44.8); MPV 9.3 fL (7.6-11.3); RBC Red Blood Cell Count 4.42 M/uL (3.86-4.86)
[2019-05-07 04:13] LABS: Urine Bacteria >50 /HPF (<20); Urine Culture Reflex Order NOT NEEDED
[2019-05-07 04:40] LABS: ALT/SGPT 21 U/L (12-78); AST/SGOT 25 U/L (15-37); Albumin 3.4 g/dL (3.4-5.0); Alkaline Phosphatase 58 U/L (45-117); BUN Blood Urea Nitrogen 13 mg/dL (7-18); Bicarbonate 29 mmol/L (21-32); Bilirubin Direct < 0.1 mg/dL (0-0.2); Bilirubin Total 0.3 mg/dL (0.2-1.0); Glucose Level 91 mg/dL (74-106); Lipase 92 U/L (73-393); Potassium 4.2 mmol/L (3.5-5.1); Protein, Total 7.4 g/dL (6.4-8.2); Sodium Level 140 mmol/L (136-145)
--- NOTE | 2019-05-07 06:35 | ER ---
Nurse's Notes [facility] Name: Shahrzad Esqueda Age: 23 yrs Sex: Female : 1995 Arrival Date: 05/07/2019 Time: 02:46 Bed 20 Private MD: Diagnosis: Abdominal tenderness;Vomiting;Nonspecific mesenteric lymphadenitis Presentation: 05/07 02:50 Presenting complaint: Patient states: C/O abdominal pain with nausea and vomiting that started Friday denies fever and diarrhea. Presenting complaint:. Transition of care: patient was not received from another setting of care. Onset of symptoms was May 07, 2019. Risk Assessment: Do you want to hurt yourself or someone else? Patient reports no desire to harm self or others. Initial Sepsis Screen: Does the patient meet any 2 criteria? No. Patient's initial sepsis screen is negative. Does the patient have a suspected source of infection? No. Patient's initial sepsis screen is negative. Care prior to arrival: None. 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 - Social history:: Smoking status: Patient/guardian denies using tobacco, Patient/guardian denies using. - Family history:: not pertinent. - Ebola Screening: : Patient negative for fever greater than or equal to 101.5 degrees Fahrenheit, and additional compatible Ebola Virus Disease symptoms Patient denies exposure to infectious person. Screenin:00 Abuse screen: Denies threats or abuse. Denies injuries from another. Nutritional screening: No deficits noted. Tuberculosis screening: No symptoms or risk factors identified. Fall Risk None identified. Assessment: 03:30 General: Appears in no apparent distress. Behavior is calm, cooperative, appropriate for age. Pain: Denies pain. Neuro: Level of Consciousness is awake, alert, obeys commands, Oriented to person, place, time, situation, Appropriate for age. Cardiovascular: Heart tones S1 S2. Respiratory: Airway is patent Respiratory effort is even, unlabored, Respiratory pattern is regular, symmetrical, Breath sounds are clear bilaterally. GI: Abdomen is flat, non-distended, Bowel sounds present X 4 quads. Abd is soft and non tender X 4 quads. Reports nausea, vomiting. : No signs and/or symptoms were reported regarding the genitourinary system. EENT: No signs and/or symptoms were reported regarding the EENT system. Derm: Skin is intact, is healthy with good turgor, Skin is pink, warm \T\ dry. normal. Musculoskeletal: Circulation, motion, and sensation intact. 04:45 Reassessment: Patient appears in no apparent distress at this time. No changes from previously documented assessment. Patient and/or family updated on plan of care and expected duration. Pain level reassessed. Patient is alert, oriented x 3, equal unlabored respirations, skin warm/dry/pink. Pt finished oral contrast CT notified. 06:01 Reassessment: Patient appears in no apparent distress at this time. No changes from previously documented assessment. Patient and/or family updated on plan of care and expected duration. Pain level reassessed. Patient is alert, oriented x 3, equal unlabored respirations, skin warm/dry/pink. Vital Signs: 03:00 BP 140 / 88; Pulse 75; Resp 18; Temp 97.8; Pulse Ox 99% ; Weight 89.36 kg; Height 5 ft. wh 6 in. (167.64 cm); Pain 0/10; 03:30 BP 131 / 95; Pulse 77; Resp 18; Pulse Ox 99% on R/A; wh 04:59 BP 108 / 91; Pulse 96; Resp 18; Pulse Ox 99% on R/A; wh 06:01 BP 127 / 91; Pulse 65; Resp 18; Pulse Ox 100% ; wh 03:00 Body Mass Index 31.80 (89.36 kg, 167.64 cm) ED Course: 02:46 Patient arrived in ED. cl3 02:52 Travis Barahona MD is Attending Physician. benedict 02:52 Lesly Whaley is Primary Nurse. 03:00 Patient has correct armband on for positive identification. Placed in gown. Bed in low wh position. Call light in reach. Side rails up X 1. Pulse ox on. NIBP on. 03:00 Arm band placed on right wrist. 03:00 Inserted saline lock: 20 gauge in right antecubital area, using aseptic technique. Blood collected. 03:36 Triage completed. 05:05 Oral contrast reported to be complete. 05:28 CT completed. Patient tolerated procedure well. Patient moved to CT via stretcher. Patient moved back from CT. 05:35 Abdomen In Process Unspecified. EDCO 06:31 Shannan Box MD is Referral Physician. [facility] 07:06 No provider procedures requiring assistance completed. IV discontinued, intact, bleeding controlled, No redness/swelling at site. Administered Medications: 03:20 Drug: NS 0.9% 1000 ml Route: IV; Rate: 1 bolus; Site: right antecubital; 05:41 Follow up: Response: No adverse reaction; IV Status: Completed infusion 03:48 Drug: Rocephin 1 grams Route: IV; Rate: per protocol; Site: right antecubital; 05:41 Follow up: Response: No adverse reaction 07:08 Follow up: Response: No adverse reaction; IV Status: Completed infusion Outcome: 06:34 Discharge ordered by . [facility] 07:07 Discharged to home ambulatory. 07:07 Condition: stable 07:07 Discharge instructions given to patient, Instructed on discharge instructions, follow up and referral plans. medication usage, POC Demonstrated understanding of instructions, follow-up care, medications, POC Prescriptions given X 3. 07:11 Patient left the ED. Signatures: Dispatcher [employer] EDCO Travis Barahona MD MD cha Hagler, Leroy Lesly Whaley Laila Dhaliwal cl3 Corrections: (The following items were deleted from the chart) 03:39 03:00 BP 131 / 95; Pulse 77bpm; Resp 18bpm; Pulse Ox 99% RA; [facility]
--- NOTE | 2019-05-07 06:36 | EDPHYS ---
Physician Documentation [facility] Name: Shahrzad Esqueda Age: 23 yrs Sex: Female : 1995 Arrival Date: 05/07/2019 Time: 02:46 Bed 20 Private MD: ED Physician Travis Barahona HPI: 05/07 03:29 This 23 yrs old Black Female presents to ER via Unassigned with complaints of benedict Nausea/Vomiting, Abdominal Pain. 03:29 The patient presents to the emergency department with nausea, vomiting. Onset: The benedict symptoms/episode began/occurred this morning, yesterday. Possible causes: unknown. The symptoms are aggravated by nothing. pressure, food , The symptoms are alleviated by nothing. Associated signs and symptoms: The patient has no apparent associated signs or symptoms. The patient has experienced similar episodes in the past, several times. 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 - Social history:: Smoking status: Patient/guardian denies using tobacco, Patient/guardian denies using. - Family history:: not pertinent. - Ebola Screening: : Patient negative for fever greater than or equal to 101.5 degrees Fahrenheit, and additional compatible Ebola Virus Disease symptoms Patient denies exposure to infectious person. ROS: 03:30 Constitutional: Negative for fever, chills, and weight loss, Eyes: Negative for injury, benedict pain, redness, and discharge, ENT: Negative for injury, pain, and discharge, Neck: Negative for injury, pain, and swelling, Cardiovascular: Negative for chest pain, palpitations, and edema, Respiratory: Negative for shortness of breath, cough, wheezing, and pleuritic chest pain, Back: Negative for injury and pain, : Negative for injury, bleeding, discharge, and swelling, MS/Extremity: Negative for injury and deformity, Skin: Negative for injury, rash, and discoloration, Neuro: Negative for headache, weakness, numbness, tingling, and seizure, Psych: Negative for depression, anxiety, suicide ideation, homicidal ideation, and hallucinations, Allergy/Immunology: Negative for hives, rash, and allergies, Endocrine: Negative for neck swelling, polydipsia, polyuria, polyphagia, and marked weight changes, Hematologic/Lymphatic: Negative for swollen nodes, abnormal bleeding, and unusual bruising. 03:30 Abdomen/GI: Positive for abdominal pain, of the epigastric area, right upper quadrant and left upper quadrant. Exam: 03:30 Constitutional: This is a well developed, well nourished patient who is awake, alert, benedict and in no acute distress. Head/Face: Normocephalic, atraumatic. Eyes: Pupils equal round and reactive to light, extra-ocular motions intact. Lids and lashes normal. Conjunctiva and sclera are non-icteric and not injected. Cornea within normal limits. Periorbital areas with no swelling, redness, or edema. ENT: Nares patent. No nasal discharge, no septal abnormalities noted. Tympanic membranes are normal and external auditory canals are clear. Oropharynx with no redness, swelling, or masses, exudates, or evidence of obstruction, uvula midline. Mucous membranes moist. Neck: Trachea midline, no thyromegaly or masses palpated, and no cervical lymphadenopathy. Supple, full range of motion without nuchal rigidity, or vertebral point tenderness. No Meningismus. Chest/axilla: Normal chest wall appearance and motion. Nontender with no deformity. No lesions are appreciated. Cardiovascular: Regular rate and rhythm with a normal S1 and S2. No gallops, murmurs, or rubs. Normal PMI, no JVD. No pulse deficits. Respiratory: Lungs have equal breath sounds bilaterally, clear to auscultation and percussion. No rales, rhonchi or wheezes noted. No increased work of breathing, no retractions or nasal flaring. Back: No spinal tenderness. No costovertebral tenderness. Full range of motion. Female : Normal external genitalia. Skin: Warm, dry with normal turgor. Normal color with no rashes, no lesions, and no evidence of cellulitis. MS/ Extremity: Pulses equal, no cyanosis. Neurovascular intact. Full, normal range of motion. Neuro: Awake and alert, GCS 15, oriented to person, place, time, and situation. Cranial nerves II-XII grossly intact. Motor strength 5/5 in all extremities. Sensory grossly intact. Cerebellar exam normal. Normal gait. Psych: Awake, alert, with orientation to person, place and time. Behavior, mood, and affect are within normal limits. 03:30 Abdomen/GI: Inspection: abdomen appears normal, Bowel sounds: normal, Palpation: mild abdominal tenderness, in the epigastric area, right upper quadrant and left upper quadrant. Vital Signs: 03:00 BP 140 / 88; Pulse 75; Resp 18; Temp 97.8; Pulse Ox 99% ; Weight 89.36 kg; Height 5 ft. wh 6 in. (167.64 cm); Pain 0/10; 03:30 BP 131 / 95; Pulse 77; Resp 18; Pulse Ox 99% on R/A; wh 04:59 BP 108 / 91; Pulse 96; Resp 18; Pulse Ox 99% on R/A; wh 06:01 BP 127 / 91; Pulse 65; Resp 18; Pulse Ox 100% ; wh 03:00 Body Mass Index 31.80 (89.36 kg, 167.64 cm) MDM: 02:52 Patient medically screened. [facility] 03:32 Data reviewed: vital signs, nurses notes, lab test result(s), EKG, radiologic studies, [facility] CT scan, plain films. 05/07 03:49 Order name: Basic Metabolic Panel; Complete Time: 04:54 [facility] 05/07 03:49 Order name: Liver (Hepatic) Function; Complete Time: 04:54 [facility] 05/07 03:49 Order name: Lipase; Complete Time: 04:54 [facility] 05/07 03:51 Order name: Creatinine (Radiology Only); Complete Time: 04:54 [facility] 05/07 03:51 Order name: CBC with Automated Diff; Complete Time: 04:54 [facility] 05/07 03:51 Order name: Urine Microscopic Only; Complete Time: 04:54 [facility] 05/07 03:51 Order name: Urine Culture [facility] 05/07 02:53 Order name: IV Saline Lock; Complete Time: 03:28 [facility] 05/07 02:53 Order name: Labs collected and sent; Complete Time: 03:28 [facility] 05/07 02:53 Order name: Urine Dipstick-Ancillary (obtain specimen); Complete Time: 03:28 [facility] 05/07 02:53 Order name: Urine Test (obtain specimen); Complete Time: 03:28 [facility] 05/07 05:25 Order name: Abdomen EDNY Administered Medications: 03:20 Drug: NS 0.9% 1000 ml Route: IV; Rate: 1 bolus; Site: right antecubital; 05:41 Follow up: Response: No adverse reaction; IV Status: Completed infusion 03:48 Drug: Rocephin 1 grams Route: IV; Rate: per protocol; Site: right antecubital; 05:41 Follow up: Response: No adverse reaction 07:08 Follow up: Response: No adverse reaction; IV Status: Completed infusion Disposition: 05/07/19 06:34 Discharged to Home. Impression: Abdominal tenderness, Vomiting, Nonspecific mesenteric lymphadenitis. - Condition is Stable. - Discharge Instructions: Abdominal Pain, Adult, Nausea and Vomiting, Adult, Nausea and Vomiting, Adult, Rkhd-me-[id number], Abdominal Pain, Adult, Ofal-td-[id number]. - Prescriptions for Bentyl 20 mg Oral Tablet - take 1 tablet by ORAL route every 6 hours As needed; 20 tablet. Zofran 4 mg Oral Tablet - take 1 tablet by ORAL route every 12 hours As needed; 20 tablet. Pepcid 20 mg Oral Tablet - take 1 tablet by ORAL route every 12 hours for 10 days; 20 tablet. - Medication Reconciliation Form, Thank You Letter, Antibiotic Education, Prescription Opioid Use form. - Follow up: Private Physician; When: 2 - 3 days; Reason: Recheck today's complaints, Continuance of care, Re-evaluation by your physician. Follow up: Shannan Box MD; When: 2 - 3 days; Reason: Recheck today's complaints, Continuance of care, Re-evaluation by your physician. - Problem is new. - Symptoms have improved. Signatures: Dispatcher [employer] EDNY Travis Barahona MD MD cha [place], Winsy Corrections: (The following items were deleted from the chart) 07:11 06:34 05/07/2019 06:34 Discharged to Home. Impression: Abdominal tenderness; Vomiting; Nonspecific mesenteric lymphadenitis. Condition is Stable. Forms are Medication Reconciliation Form, Thank You Letter, Antibiotic Education, Prescription Opioid Use. Follow up: Private Physician; When: 2 - 3 days; Reason: Recheck today's complaints, Continuance of care, Re-evaluation by your physician. Follow up: Shannan Box; When: 2 - 3 days; Reason: Recheck today's complaints, Continuance of care, Re-evaluation by your physician. Problem is new. Symptoms have improved. benedict
[2019-05-07 07:21] VITALS: TEMP 97.8
[2019-05-07 07:46] VITALS: BP 127/91; O2SAT 100
--- NOTE | 2019-05-07 10:06 | RAD REPORT ---
EXAM DESCRIPTION: CT - Abdomen Pelvis W Contrast - 05/07/2019 6:30 am CLINICAL HISTORY: Upper abdominal pain. COMPARISON: None Available. TECHNIQUE: CT of the abdomen and pelvis performed following IV administration of iodinated contrast. FINDINGS: Lung Bases: The visualized lung bases are clear. Bones: No destructive bone lesions identified. Abdomen: Liver: The liver has normal size and density. No intrahepatic mass or biliary dilatation. Gallbladder: No calcified gallstones. Spleen, Pancreas, and Adrenal Glands: The spleen, pancreas, and adrenal glands are unremarkable. Kidneys: The kidneys have normal size without evidence of solid mass or hydronephrosis. Vasculature: The aorta and IVC have normal caliber and position. The portal vein is patent. The pro ximal visceral and renal arteries are patent. Stomach: The stomach and duodenum have normal course. Other: No free intraperitoneal air. Small amount of free fluid. Scattered mildly enlarged upper a bdominal lymph nodes. Pelvis: Bladder: Urinary bladder is unremarkable. Bowel: No dilated loops of large or small bowel. Appendix: Normal appendix. Pelvis: Uterus is not enlarged. IMPRESSION: 1. Findings compatible with mesenteric adenitis. Small amount of free fluid. This exam was performed according to our departmental dose-optimization program, which includes autom ated exposure control, adjustment of the mA and/or kV according to patient size and/or use of iterati ve reconstruction technique. Electronically signed by: Arnold Maravilla 05/07/2019 6:14 AM DYE TANK TENDER Due to temporary technical issues with the PACS/Fluency reporting system, reports are being signed by the in house radiologist as a courtesy to ensure prompt reporting. The interpreting radiologist is f ully responsible for the content of the report.
== END 2019-05-07 07:11 | disposition home or self-care (01) ==
LOC: ER 02:44
DX: I88.0 Nonspecific mesenteric lymphadenitis (principal); R10.819 Abdominal tenderness, unspecified site
CPT/HCPCS: 36415; 74177; 80048; 80076; 81015; 83690; 85025; 87086; 87088; 96365; 96366; 99284; J0696; J7030; Q9967

== ENCOUNTER 2022-01-15 17:54 | Emergency (ER) | payer SELFPAY ==
--- OUTSIDE RECORDS SUMMARY | 2022-01-15 19:07 | XMS REPORT | Continuity of Care Document ---
:1995 Author Organization [facility] t Address [address] [place] [address] Care Team Providers Name Role Phone Martin Garcia Primary Care Physician Martin Garcia Attending Clinician [phone] MARTIN BERMAN Attending Clinician Unavailable LIBERTY LIN Attending Clinician Unavailable Payers Payer Name Policy Type Policy Number Effective Date Expiration Date S ource Problems Condition Condition Condition Status Onset Resolution Last Treating Co mments Source Name Details Category Date Date Treatment Clinician Date Elevated Elevated Disease Active 2019-05 Unive rs BP without BP without 2-01 it y of diagnosis [place] hypertens[place] hypertens[place] Br anch on on Obesity Obesity Disease Active Univers (BMI (BMI 8-05 ity of 30-39.9) 30-39.9) 00:00: [place] [address] Medical Branch Encounter Encounter Disease Active Uni vers for other for other 8-11 ity of general general 00:00: [place] counseling counseling 00 Me dical or advice or advice Bran ch on on contracept contracept ion ion Herpes Herpes Disease Active Univers genitalis genitalis 7-25 ity of in women in women 00:00: [place] [address] Medical Branch Asthma Asthma Disease Active 2012-05 Overview: Univer s 0-10 Formattin ity of 00:00: g of this [place] note Medical might be Branch different from the original. ICD10 Diagnosis Term [place] Utility Allergies, Adverse Reactions, Alerts Allergy Allergy Status Severity Reaction(s) Onset Inactive Treating Comm ents Source Name Type Date Date Clinician NO KNOWN Drug Active Univers ALLERGIE Class ity of S [place] [facility] Social History Social Habit Start Date Stop Date Quantity Comments Source History SDWV University o f Alcohol Frequency [place] [facility] History [facility] University o f Alcohol Binge [place] [facility] al [facility] Exposure to Not sure [facility] SARS-CoV-2 [place] [facility] (event) Branch Alcohol intake 2021-01-31 2021-01-31 Current drinker Unive rsity of 00:00:00 00:00:00 of alcohol [place] [facility] (finding) Branch Alcohol Comment 2021-01-31 2021-01-31 Socially Universit y of 00:00:00 00:00:00 [place] [facility] History SDOH 2018-12-14 2018-12-14 1 University o f Alcohol Std 00:00:00 00:00:00 [place] [facility] Drinks Branch Sex Assigned At [birth year] Universit y of 00:00:00 00:00:00 [facility] Smoking Status Start Date Stop Date Source Never smoker [facility] Medical Branch Medications Ordered Filled Start Stop Current Ordering Indication Dosage Frequency Signature Comments Components Source Medication Medication Date Date Medication? Clinician (SIG) Name Name norethindro 2019-05 Yes [id number] 1{tbl} Take 1 Univers ne 0.35 mg 2-01 tablet by ity of tablet 00:00: mouth [place] 00 daily. Medical Start 1st Branch pack with next menses. acyclovir Yes [id number] 400mg Take 1 Univers 400 mg 3-05 tablet by ity of tablet 00:00: mouth 2 00 (two) Medical times Branch daily. ibuprofen 2017-05 Yes 600mg Take 1 Unive rs 600 mg 2-06 tablet by ity of tablet 00:00: mouth [place] 00 every 6 Medical (six) Branch hours as needed for Pain (scale 1-3) or Pain (scale 4-6). Immunizations Ordered Filled Immunization Date Status Comments Sour e Immunization Name Name Influenza Virus 2020-01-31 Completed Universit y of Vaccine Quad .5 mL 00:00:00 [facility] IM 6+ MO Branch HPV9 2017-10-28 Completed University 00:00:00 [facility] HPV9 2017-03-21 Completed University 00:00:00 [facility] HPV9 2016-12-20 Completed [facility] 00:00:00 [facility] Td 2011-12-20 Completed [facility] 00:00:00 [facility] Vital Signs Vital Name Observation Time Observation Value Comments Source Systolic blood 2021-01-31 20:18:00 135 mm[Hg] Univer sity of pressure [facility] Diastolic blood 2021-01-31 20:18:00 79 mm[Hg] Unive rsity of pressure [facility] Heart rate 2021-01-31 20:17:00 86 /min [facility] Body temperature 2021-01-31 20:17:00 37.28 Milly [facility] Respiratory rate 2021-01-31 20:17:00 18 /min [facility] Body height 2021-01-31 20:17:00 170.2 cm [facility] Body weight 2021-01-31 20:17:00 91.808 kg [facility] BMI 2021-01-31 20:17:00 31.70 kg/m2 [facility] Procedures Procedure Date / Time Performing Clinician Source Performed GLYCOSYLATED HEMOGLOBIN 2021-01-31 20:46:00 Martin Berman [facility] HIV 1/2 AG-AB WITH 2021-01-31 20:46:00 Martin Berman [facility] REFLEX [facility] GALV ONLY - SYPHILIS 2021-01-31 20:46:00 Martin Berman [facility] IGG/IGM [facility] Encounters Start End Encounter Admission Attending Care Care Encounter Source Date/Time Date/Time Type Type Clinicians Facility Department ID 2021-01-31 2021-01-31 Office IRENE Berman [id number] Univers 15:04:23 15:45:03 Visit Martin Aceves [facility] [id number] ity [facility] [id number] Adarsh as MATERNAL [id number] Med ical & CHILD [address] [place] [address] 2021-01-31 2021-01-31 Outpatient IRENE BERMAN [facility] [id number] Univers 15:00:00 15:00:00 MARTIN [id number] gab o [facility] 2021-01-31 2021-01-31 Outpatient R ANTONELLA, [facility] [id number] Univers 15:00:00 15:00:00 MARTIN hussein [facility] 2020-07-10 2020-07-10 Outpatient R [facility] [id number] Univers 08:30:00 08:30:00 [id number] [facility] 2020-07-10 2020-07-10 Outpatient R [facility] [id number] Univers 08:30:00 08:30:00 [facility] 2020-04-11 2020-04-11 Outpatient R DELIA, [facility] [id number] Univers 07:45:00 07:45:00 LIBERTY [facility] 2020-04-11 2020-04-11 [facility] [id number] Univers 07:45:00 07:45:00 LIBERTY [facility] 2020-01-31 2020-01-31 Outpatient R ANTONELLA, [facility] [id number] Univers 10:00:00 10:00:00 MARTIN [facility] 2020-01-31 2020-01-31 Outpatient R ANTONELLA, [facility] [id number] Univers 10:00:00 10:00:00 MARTIN [id number] [facility] Results Test Description Test Time Test Comments Results Result Comments Source GALV ONLY - SYPHILIS IGG/IGM 2021-02-01 17:18:44 Test Item Value Reference Range Interpretation Comme nts Syphilis IgG/IgM (test code = Non-reactive Non-reactive 13465-0) DISHA (test code = DISHA) Non-reactive - No serologic evidence of T. pallidum infection. Cannot exclude incubating or early syphilis. Submit a second specimen in 2-4 weeks if syphilis is clinically suspected. Equivocal - Further testing to follow. Reactive - Further testing to follow. Lab Interpretation (test code = Normal 26687-3) [facility] 04:34:08 Test Item Value Reference Range Interpretation Comments HGB A1C (test code = 5.2 % 4.0-5.7 4548-4) DISHA (test code = DISHA) Reference RangesNormal: <5.7%Prediabetes: 5.7 - 6.4%Diabetes: > 6.5% Lab Interpretation (test Normal code = 37777-2) [facility] WITH [id number] 04:29:02 Test Item Value Reference Range Interpretation Comments HIV Negative Negative Semi-quantitative (test code = 86334-9) DISHA (test code = Non-reactive for HIV-1 DISHA) antigen and HIV-1/HIV-2 antibodies. ?No laboratory evidence of HIV infection. ?Repeat in 2-4 weeks if acute HIV infection is suspected. [facility]
[2022-01-15] MEDS ORDERED: TETANUS & DIPHTHERIA TOX,ADULT 0.5 ML VIAL ONE (19:11)
[2022-01-15] MEDS ORDERED: ACETAMINOPHEN 500 MG TAB ONE (19:11)
[2022-01-15] MEDS ORDERED: LIDOCAINE 1% MPF 5 ML VIAL ONE (20:20)
--- NOTE | 2022-01-15 20:34 | RAD REPORT ---
EXAM DESCRIPTION: - Finger-Thumb Left - 01/15/2022 8:14 pm CLINICAL HISTORY: laceration COMPARISON: No comparisonsNo comparisons FINDINGS/IMPRESSION: No acute fracture. No malalignment. No significant focal degenerative changes.
--- NOTE | 2022-01-15 20:34 | EDPHYS ---
Physician Documentation [facility] Name: Shahrzad Esqueda Age: 26 yrs Sex: Female : 1995 Arrival Date: 01/15/2022 Time: 17:55 Bed 10 Private MD: ED Physician Ryne Merrill HPI: 01/15 18:20 This 26 yrs old Black Female presents to ER via Ambulatory with complaints of Finger cp Laceration. 18:20 The patient or guardian reports a laceration, clean. The complaints affect the palmar cp aspect of distal phalanx of left middle finger. Context: The problem was sustained at work, resulted from use of sharp blade. Onset: The symptoms/episode began/occurred just prior to arrival. Associated signs and symptoms: The patient has no apparent associated signs or symptoms. Historical: - Allergies: 18:05 NKDA; ld1 - Home Meds: 18:05 None [Active]; ld1 - PMHx: 18:05 Genital herpes; ld1 - PSHx: 18:05 None; ld1 - Immunization history:: Adult Immunizations up to date. - Social history:: Smoking status: Patient denies any tobacco usage or history of. Patient uses alcohol, occasionally. ROS: 18:25 Skin: Positive for laceration(s), of the palmar aspect of distal phalanx of left middle cp finger. 18:25 Constitutional: Negative for body aches, chills, fever. cp 18:25 MS/extremity: Negative for decreased range of motion, paresthesias. 18:25 All other systems are negative. Exam: 18:30 Constitutional: The patient appears in no acute distress, alert, awake, comfortable, cp non-toxic, well developed, well nourished. 18:30 Head/Face: Normocephalic, atraumatic. cp 18:30 Cardiovascular: Rate: normal, Rhythm: regular. 18:30 Respiratory: the patient does not display signs of respiratory distress, Respirations: normal, no use of accessory muscles, no retractions. 18:30 Musculoskeletal/extremity: Extremities: grossly normal except: noted in the palmar aspect of distal phalanx of left middle finger: laceration, left middle finger neurovascular intact, full active ROM and no signs of tendon damage, scant bleeding noted. Vital Signs: 18:03 BP 146 / 87; Pulse 90; Resp 16; Temp 97.5(TE); Pulse Ox 99% on R/A; Weight 86.18 kg; ld1 Height 5 ft. 7 in. (170.18 cm); Pain 7/10; 18:03 Body Mass Index 29.76 (86.18 kg, 170.18 cm) ld1 Laceration: 20:21 Wound Repair of 1.5cm ( 0.6in ) subcutaneous laceration to palmar aspect of distal cp phalanx of left middle finger. Linear shaped.. Distal neuro/vascular/tendon intact. Anesthesia: Wound infiltrated with 2 mls of 1% lidocaine. Wound prep: Moderate cleansing by me, Wound irrigation by me. Skin closed with 2 5-0 Prolene using interrupted sutures and sterile technique. Dressed with Bacitracin. Patient tolerated well. MDM: 18:42 Patient medically screened. cp 20:33 Data reviewed: vital signs, nurses notes, radiologic studies, plain films. cp 20:33 Differential diagnosis: open fracture, simple laceration, tendon laceration. Test cp interpretation: by ED physician or midlevel provider: plain radiologic studies, xrays of left hand negative for fracture. Counseling: I had a detailed discussion with the patient and/or guardian regarding: the historical points, exam findings, and any diagnostic results supporting the discharge/admit diagnosis, radiology results, the need for outpatient follow up, a family practitioner, to return to the emergency department if symptoms worsen or persist or if there are any questions or concerns that arise at home. Response to treatment: the patient's symptoms have markedly improved after treatment. 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 Exp: 09/15/2023. Lot kb3 #: [id number]. } Route: IM; Site: right deltoid; 19:51 Follow up: Response: No adverse reaction kb3 19:05 Drug: Tylenol 1000 mg Route: PO; kb3 19:51 Follow up: Response: No adverse reaction kb3 20:14 Drug: Lidocaine (1 %) 5 ml {Note: Administered by provider during procedure.} Volume: 5 kb3 ml; Route: Infiltration; Disposition Summary: 01/15/22 20:33 Discharge Ordered Location: Home cp Problem: new cp Symptoms: have improved cp Condition: Stable cp Diagnosis - Laceration without foreign body of left middle finger without damage to nail cp Followup: cp - With: Private Physician - When: 1 week - Reason: Staple/Suture removal Discharge Instructions: - Discharge Summary Sheet cp - Laceration Care, Adult cp - Sutured Wound Care cp Forms: - Medication Reconciliation Form cp - Thank You Letter cp - Antibiotic Education cp - Prescription Opioid Use cp Addendum: 01/16/2022 22:33 Co-signature as Attending Physician, Ryne Merrill MD. r n Signatures: Dispatcher [employer] EDRyne Taylor MD MD rn Page, Corey, PA PA cp Negra Banks RN RN ld1 Sandra Fuller RN RN kb3
--- NOTE | 2022-01-15 20:34 | ER ---
Nurse's Notes [facility] Name: Shahrzad Esqueda Age: 26 yrs Sex: Female : 1995 Arrival Date: 01/15/2022 Time: 17:55 Bed 10 Private MD: Diagnosis: Laceration without foreign body of left middle finger without damage to nail Presentation: 01/15 18:03 Chief complaint: Patient states: sliced left middle finger 3 hours ago with orthodontic ld1 blade. Coronavirus screen: Vaccine status: Patient reports being unvaccinated. Ebola Screen: No symptoms or risks identified at this time. Initial Sepsis Screen: Does the patient meet any 2 criteria? No. Patient's initial sepsis screen is negative. Does the patient have a suspected source of infection? No. Patient's initial sepsis screen is negative. Risk Assessment: Do you want to hurt yourself or someone else? Patient reports no desire to harm self or others. Onset of symptoms was January 15, 2022. 18:03 Method Of Arrival: Ambulatory ld1 18:03 Acuity: LOKESH 4 ld1 Triage Assessment: 18:05 General: Appears in no apparent distress. comfortable, Behavior is calm, cooperative, ld1 appropriate for age. Pain: Complains of pain in palmar aspect of distal phalanx of left middle finger Pain does not radiate. Pain currently is 7 out of 10 on a pain scale. Quality of pain is described as sharp, Pain began 3 hours ago. Is continuous. Neuro: Level of Consciousness is awake, alert, obeys commands, Oriented to person, place, time, situation. Cardiovascular: Capillary refill < 3 seconds Patient's skin is warm and dry. Respiratory: Airway is patent Respiratory effort is even, unlabored. GI: : Derm: No signs and/or symptoms reported regarding the dermatologic system. Musculoskeletal: Circulation, motion, and sensation intact. Injury Description: Laceration sustained to palmar aspect of distal phalanx of left middle finger is 0.5 to 2.5 cm long, was sustained 2-4 hours ago. a small amount of bleeding noted at this time. Historical: - Allergies: 18:05 NKDA; ld1 - Home Meds: 18:05 None [Active]; ld1 - PMHx: 18:05 Genital herpes; ld1 - PSHx: 18:05 None; ld1 - Immunization history:: Adult Immunizations up to date. - Social history:: Smoking status: Patient denies any tobacco usage or history of. Patient uses alcohol, occasionally. Screenin:30 Abuse screen: Denies threats or abuse. Denies injuries from another. Nutritional kb3 screening: No deficits noted. Tuberculosis screening: No symptoms or risk factors identified. Fall Risk None identified. Assessment: 18:30 General: Appears in no apparent distress. Behavior is calm, cooperative, Received care kb3 of pt from [employer] [employer]. Pt RAJIVO x4, reports she cut her finger on a clean instrument at work this afternoon. 1cm linear laceration noted to mid-phalange on digit #3, palmar side of left hand. No bleeding noted upon arrival. Vital Signs: 18:03 BP 146 / 87; Pulse 90; Resp 16; Temp 97.5(TE); Pulse Ox 99% on R/A; Weight 86.18 kg; ld1 Height 5 ft. 7 in. (170.18 cm); Pain 7/10; 18:03 Body Mass Index 29.76 (86.18 kg, 170.18 cm) ld1 ED Course: 17:55 Patient arrived in ED. mr 17:55 Travis Caceres PA is PHCP. cp 17:55 Ryne Merrill MD is Attending Physician. cp 18:05 Triage completed. ld1 18:30 Patient has correct armband on for positive identification. Bed in low position. Call kb3 light in reach. 18:44 Sandra Fuller, RN is Primary Nurse. kb3 20:00 Assist provider with laceration repair that was 2.5 cm. or less using sutures. Set up kb3 tray. Performed by Travis LEMUS. 21:01 Patient did not have IV access during this emergency room visit. 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 Exp: 09/15/2023. Lot kb3 #: [id number]. } Route: IM; Site: right deltoid; 19:51 Follow up: Response: No adverse reaction kb3 19:05 Drug: Tylenol 1000 mg Route: PO; kb3 19:51 Follow up: Response: No adverse reaction kb3 20:14 Drug: Lidocaine (1 %) 5 ml {Note: Administered by provider during procedure.} Volume: 5 kb3 ml; Route: Infiltration; Medication: 18:30 VIS not applicable for this client. kb3 Outcome: 20:33 Discharge ordered by . franco 21:00 Discharged to home ambulatory. vc1 21:00 Condition: good 21:00 Discharge instructions given to patient, Instructed on discharge instructions, follow up and referral plans. Demonstrated understanding of instructions, follow-up care. 21:01 Patient left the ED. vc1 Signatures: Damaris Bobby Corey, PA PA cp Dibbern, Lauren, RN RN ld1 Antonette Estrella RN RN vc1 Sandra Fuller, RN RN kb3
[2022-01-15 23:16] VITALS: BP 146/87; TEMP 97.5; O2SAT 99
== END 2022-01-15 21:01 | disposition home or self-care (01) ==
LOC: ER 17:54
PROC: 0JQK0ZZ Repair Left Hand Subcutaneous Tissue and Fascia, Open Approach (ICD-10-PCS; principal; 2022-01-15)
DX: S61.213A Laceration without foreign body of left middle finger without damage to nail, initial encounter (principal); Z23 Encounter for immunization
CPT/HCPCS: 90471; 90714; 99283; J2001

== ENCOUNTER 2023-11-04 19:57 | Emergency (ER) | payer SELFPAY ==
--- NOTE | 2023-11-04 20:54 | EDPHYS ---
Physician Documentation [facility] Name: Shahrzad Esqueda Age: 28 yrs Sex: Female : 1995 Arrival Date: 11/04/2023 Time: 19:57 Bed IW1 Private MD: ED Physician Agueda Sal HPI: 11/03 20:25 This 28 yrs old Black Female presents to ER via Ambulatory with complaints of Sore sb4 Throat. 20:25 The patient presents with sore throat. Onset: The symptoms/episode began/occurred sb4 today. Associated signs and symptoms: The patient has no apparent associated signs or symptoms. The patient has not experienced similar symptoms in the past. The patient has not recently seen a physician. 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 - Infectious Disease History:: Denies. - Social history:: Smoking status: Reported history of juuling and/or vaping. ROS: 20:25 Constitutional: Negative for fever, chills, and weight loss, sb4 20:25 ENT: Positive for sore throat, 20:25 All other systems are negative, Exam: 20:25 Constitutional: This is a well developed, well nourished patient who is awake, alert, sb4 and in no acute distress. Head/Face: Normocephalic, atraumatic. Eyes: Extra-ocular motions intact. Periorbital areas with no swelling, redness, or edema. 20:25 Skin: Warm, dry with normal turgor. Normal color with no rashes, no lesions, and no evidence of cellulitis. MS/ Extremity: Pulses equal, no cyanosis. Neurovascular intact. Full, normal range of motion. 20:25 ENT: Posterior pharynx: Tonsils: bilaterally enlarged, with erythema, no exudate, no ulcerations, Uvula: edematous, erythema, Vital Signs: 20:20 BP 146 / 91; Pulse 99; Resp 18; Temp 97.4; Pulse Ox 100% ; Weight 88.9 kg; Height 5 ft. as6 7 in. ; Pain 8/10; 21:06 BP 146 / 87; Pulse 86; Resp 18; Pulse Ox 100% ; as6 20:20 Body Mass Index 30.70 (88.90 kg, 170.18 cm) as6 20:20 Pain Scale: Adult as6 MDM: 20:18 Patient medically screened. sb4 20:25 Data reviewed: vital signs, nurses notes, lab test result(s), and as a result, I will sb4 discharge patient. 20:53 Counseling: I had a detailed discussion with the patient and/or guardian regarding the sb4 historical points, exam findings, and any diagnostic results supporting the discharge/admit diagnosis, lab results, to return to the emergency department if symptoms worsen or persist or if there are any questions or concerns that arise at home. 11/03 20:21 Order name: Strep; Complete Time: 20:53 sb4 Administered Medications: 21:06 Drug: Amoxicillin-Clavulanate PO 875 mg PO once Route: PO; as6 21:08 Follow up: Response: Medication administered at discharge. as6 Disposition Summary: 11/04/23 20:53 Discharge Ordered Notes: Location: Home sb4 Problem: new sb4 Symptoms: are unchanged sb4 Condition: Stable sb4 Diagnosis - Streptococcal pharyngitis sb4 Followup: sb4 - With: Emergency Department - When: As needed - Reason: Trouble breathing, Worsening of condition Discharge Instructions: - Discharge Summary Sheet sb4 - Strep Throat, Adult, [id number] sb4 Forms: - Antibiotic Education sb4 - Patient Portal Instructions sb4 - Leadership Thank You Letter sb4 Prescriptions: - Amoxicillin 875 mg Oral Tablet - take 1 tablet ORAL route every 12 hours for 10 days; 20 tablet; Refills: 0, sb4 Product Selection Permitted Signatures: Dispatcher [employer] Michael Beyer RN RN as6 Nicol Hudson PA-C PAMiko sb4
--- NOTE | 2023-11-04 20:54 | ER ---
Nurse's Notes [facility] Name: Shahrzad Esqueda Age: 28 yrs Sex: Female : 1995 Arrival Date: 11/04/2023 Time: 19:57 Bed IW1 Private MD: Diagnosis: Streptococcal pharyngitis Presentation: 11/03 20:20 Chief complaint: Patient states: "I think I have strep throat". Coronavirus screen: At as6 this time, the client does not indicate any symptoms associated with coronavirus-19. Ebola Screen: No symptoms or risks identified at this time. Initial Sepsis Screen: Does the patient meet any 2 criteria? No. Patient's initial sepsis screen is negative. Does the patient have a suspected source of infection? No. Patient's initial sepsis screen is negative. Risk Assessment: Do you want to hurt yourself or someone else? Patient reports no desire to harm self or others. Onset of symptoms was November 04, 2023. 20:20 Method Of Arrival: Ambulatory as6 20:20 Acuity: LOKESH 4 as6 Triage Assessment: 20:26 General: Appears in no apparent distress. comfortable, Behavior is calm, cooperative. as6 Pain: Complains of pain in throat. EENT: Throat is reddened has enlarged tonsils. Neuro: Level of Consciousness is awake, alert, obeys commands, Oriented to person, place, time, situation. Respiratory: Airway is patent. 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 - Infectious Disease History:: Denies. - Social history:: Smoking status: Reported history of juuling and/or vaping. Screenin:[address] [facility] ED Fall Risk Assessment (Adult) History of falling in the last 3 months, as6 including since admission No falls in past 3 months (0 pts) Confusion or Disorientation No (0 pts) Intoxicated or Sedated No (0 pts) Impaired Gait No (0 pts) Mobility Assist Device Used No (0 pt) Altered Elimination No (0 pt) Score/Fall Risk Level 0 - 2 = Low Risk Oriented to surroundings, Maintained a safe environment, Educated pt \\T\\ family on fall prevention, incl call for assistance when getting out of bed, Assessed \\T\\ reinforced patient's understanding of fall precautions. Abuse screen: Denies threats or abuse. Denies injuries from another. Nutritional screening: No deficits noted. Tuberculosis screening: No symptoms or risk factors identified. Vital Signs: 20:20 BP 146 / 91; Pulse 99; Resp 18; Temp 97.4; Pulse Ox 100% ; Weight 88.9 kg; Height 5 ft. as6 7 in. ; Pain 8/10; 21:06 BP 146 / 87; Pulse 86; Resp 18; Pulse Ox 100% ; as6 20:20 Body Mass Index 30.70 (88.90 kg, 170.18 cm) as6 20:20 Pain Scale: Adult as6 ED Course: 20:00 Patient arrived in ED. ra3 20:03 Nicol Hudson PA-C is PHCP. sb4 20:03 Agueda Sal MD is Attending Physician. sb4 20:21 Triage completed. as6 20:21 Michael Meneses, RN is Primary Nurse. as6 20:21 Arm band placed on. as6 20:28 Patient has correct armband on for positive identification. as6 20:28 Strep Sent. as6 21:06 Provided Education on: rx teaching . as6 21:07 No provider procedures requiring assistance completed. Patient did not have IV access as6 during this emergency room visit. Administered Medications: 21:06 Drug: Amoxicillin-Clavulanate PO 875 mg PO once Route: PO; as6 21:08 Follow up: Response: Medication administered at discharge. as6 Medication: 20:28 VIS not applicable for this client. as6 Outcome: 20:53 Discharge ordered by . sb4 21:07 Discharged to home ambulatory, as6 21:07 Condition: stable 21:07 Discharge instructions given to patient, Instructed on discharge instructions, follow up and referral plans. medication usage, Demonstrated understanding of instructions, follow-up care, medications, Prescriptions given X 1, 21:08 Patient left the ED. as6 Signatures: Michael Meneses RN RN as6 Nicol Hudson PA-C PA-C sb4 Judy Mae ra3
[2023-11-04] MEDS ORDERED: AMOX/K CLAV 875 MG TAB ONE (21:04)
[2023-11-04 21:44] VITALS: BP 146/87; TEMP 97.4; O2SAT 100
== END 2023-11-04 21:08 | disposition home or self-care (01) ==
LOC: ER 19:57
DX: J02.0 Streptococcal pharyngitis (principal)
CPT/HCPCS: 87081